=== PATIENT | female | born 1990 | race Caucasian/White ===

== ENCOUNTER → 2016-06-16 | Outpatient (CLI) | payer BC ==
--- NOTE | 2016-06-16 11:54 | REP ---
Double contrast upper GI series: History: Gastroesophageal reflux disease. 56 seconds of fluoroscopy time is utilized. A single overhead observation nurse view, 14 fluoroscopically obtained spot radiographs, and one last image hold fluoroscopic images are obtained. Findings: Credit Verifier view shows a mild dextroconvex curvature in the lumbar spine. Bowel gas pattern is normal. Double contrast study demonstrates a normal esophagus and gastroesophageal junction. Reflux was not witnessed during the exam. No stricture or hiatal hernia is seen. The stomach displays normal rugal folds and a normal mucosal pattern. No gastric mass or ulcer seen. Pylorus is smooth. Duodenal bulb was fully distensible and clear. C-loop is not widened. Remainder of the visualized small bowel is unremarkable. Impression: Normal double contrast upper GI series. Reflux was not witnessed during exam. Signed by Edil Bolanos MD 06/16/2016 12:28 P
--- NOTE | 2016-06-17 04:26 | REP ---
Clinical: Abdominal pain with history of gastroesophageal reflux disease. Technique: Real time rios scale ultrasound examination using curved array transducer. Findings: Liver and visualized pancreas are normal in contour, size, and echogenicity without focal hepatic or pancreatic lesions identified. Gallbladder demonstrates mobile stones up to 1.5 cm, but without wall thickening, pericholecystic fluid or sonographic Gomes sign. No biliary ductal dilatation is appreciated and the common bile duct measures 4.6 mm diameter. Right kidney is normal in reniform shape without hydronephrosis and measures 10.7 x 5.3 x 4.2 cm. No free fluid in the right upper quadrant. Impression: Cholelithiasis without sonographic evidence for acute cholecystitis. Signed by Derick Dickerson MD 06/17/2016 04:18 A
== END ==
LOC: M RAD 09:57
PROVIDERS: ATTEND Nurse Practitioner Adult Health
DX: K21.9 Gastro-esophageal reflux disease without esophagitis (principal)

== ENCOUNTER → 2016-07-14 | Outpatient (CLI) | payer BC ==
[~2016-07-14] MED LIST: METHACHOLINE KIT (J7674) INH ONE
--- NOTE | 2016-07-14 10:41 | PFTRPT ---
PULMONARY FUNCTION REPORT ORDERING PROVIDER: DERIC Reyez DATE OF SERVICE: 07/14/16 SPIROMETRY: Excellent technical quality. The forced vital capacity is normal. The FEV1 is in proportion. The obstructive index is, therefore, normal. FLOW VOLUME LOOP: The expiratory limb of the flow volume loop is normal. LUNG VOLUMES: The total lung capacity is normal. The residual volume is in proportion. DIFFUSION CAPACITY: The diffusion capacity is normal. HEMOGLOBIN: No hemoglobin is available for correction. AIRWAY MECHANICS: Airways resistance and conductance are normal. IMPRESSION: Normal study. MTDD
--- NOTE | 2016-07-14 11:28 | PFTRPT ---
METHACHOLINE CHALLENGE REPORT: ORDERING PROVIDER: DERIC Reyez DATE OF SERVICE:07/14/16 INTERPRETATION: The study was of excellent technical quality. Under protocol, methacholine was administered. At a dose of 25 mg (188.875 CDUs), a 22% decline in the FEV1 was noted. The PC20 of 18.44 does not meet criteria for a positive study. Of note is that, at a dose of 13.875 CDUs, a 19% decline was noted, but actually flow rates improved as we went higher in methacholine. IMPRESSION: Borderline methacholine challenge study in view of the above. Please correlate clinically. MTDD
== END ==
LOC: M CARPUL 10:07
PROVIDERS: ATTEND Nurse Practitioner Adult Health
DX: R05 Cough (principal)

== ENCOUNTER → 2016-08-29 | Outpatient (REF) | payer BC ==
[~2016-08-29] MED LIST changes: +ALEV220T26 PO; +ARNU1INH3 INH; -METHACHOLINE KIT (J7674) INH ONE; +NORE0.353 PO; +OMEP40CA2 PO; +PROA1AER INH; +TYLE500T78 PO
== END ==
LOC: M SFHCWAGY 12:53
PROVIDERS: ATTEND Nurse Practitioner Women's Health
DX: Z12.4 Encounter for screening for malignant neoplasm of cervix (principal)

== ENCOUNTER → 2016-09-15 | Day surgery (SDC) | payer BC ==
[~2016-09-15] VITALS: Ht 160 cm; Wt 105.2 kg
[~2016-09-15] MED LIST changes: +BUPIVACAINE/EPIN 0.25% 30 ML VIAL As Ordered ONE; +FAMOTIDINE/NS 20 MG/50 ML BAG (S0028) IV ONE; +KETOROLAC 60 MG/2 ML VIAL (J1885) As Ordered ONE; +LIDOCAINE 2% INJ 100 MG/5 ML SDV (FOR ANES.) As Ordered ONE; +LR 1,000 ML IV SCH; +METOCLOPRAMIDE INJ 10MG/2ML VIAL (J2765) As Ordered ONE; +METOCLOPRAMIDE INJ 10MG/2ML VIAL (J2765) IV PRN; +MIDAZOLAM INJ 2 MG/2 ML VIAL (J2250) As Ordered ONE; +NORCO, ANEXSIA 5/325MG TABLET (HYDROcodone/ACETAMINOPHEN) PO PRN; +ONDANSETRON 4MG/2ML VIAL (J2405) As Ordered ONE; +ONDANSETRON 4MG/2ML VIAL (J2405) IV PRN; +PERCOCET 5MG/325MG TAB As Ordered ONE; +PROPOFOL 200 MG/20 ML VIAL As Ordered ONE; +ROCURONIUM BROMIDE 50 MG/5 ML VIAL As Ordered ONE; +SCOPOLAMINE 1.5 MG TRANSDERMAL TOP ONE; +SUCCINYLCHOLINE 100 MG/5 ML SYRINGE (J0330) As Ordered ONE; +SUGAMMADEX SODIUM 500 MG/5 ML VIAL (BRIDION) As Ordered ONE; +dexameTHASONE 4 MG/ML 1ML VIAL (J1100) As Ordered ONE; +fentaNYL 100 MCG/2 ML INJECTION (J3010) As Ordered ONE; +fentaNYL 250 MCG/5 ML INJECTION (J3010) As Ordered ONE
[2016-09-15 07:44] LABS: CONTROL LINE UCG INT CTR LINE PRESENT
[2016-09-15] MEDS: fentaNYL 100 MCG/2 ML INJECTION (J3010) IV PRN ×4 (10:00→10:27)
[2016-09-15] MEDS: PERCOCET 5MG/325MG TAB PO PRN ×2 (10:05→12:35)
[2016-09-15 14:00] VITALS: BP 117/64
--- NOTE | 2016-09-15 21:59 | RO ---
DATE OF PROCEDURE: 09/15/2016 PREOPERATIVE DIAGNOSIS: Symptomatic cholelithiasis. POSTOPERATIVE DIAGNOSIS: Symptomatic cholelithiasis. PROCEDURE: Laparoscopic cholecystectomy. SURGEON: Dr. Fred Fish FINISHING RANGE SUPERVISOR: Dr. Richardson ANESTHESIA: General. ESTIMATED BLOOD LOSS: 5 mL. COMPLICATIONS: None. INDICATIONS FOR PROCEDURE: Patient is 25-year-old female who presents with persistent right upper abdominal pain, found to have stones on ultrasound. Recommendation was to proceed with laparoscopic, possible open cholecystectomy. Risks and benefit of procedure, not limited to but including bleeding, infection, hernia formation, damage to surrounding structures and need for further surgery were discussed in detail with the patient. Informed consent was obtained and procedure was planned. DESCRIPTION OF PROCEDURE: The patient was brought back to operating room seven, after sufficient sedation, the abdomen was sterilely prepped and draped. Next, time-out was done to confirm proper patient, proper procedure. Following that, a stab incision was made in left upper quadrant. Veress needle was inserted and the abdomen was insufflated to 15 mmHg. Next, a 5 mm supraumbilical incision was made, incision was carried down to the level of the fascia. A 5 mm Optiview port was then used to gain access to the abdomen. Once the abdomen was entered, Veress needle site was examined. There were no signs of injury. Veress needle was then removed. A 10 mm port was placed subxiphoid, two 5 mm ports in the right upper quadrant. Fundus of the gallbladder was grasped and elevated up towards the right shoulder. Cystic duct and cystic artery were both clearly identified. They were both doubly clipped and cut. Gallbladder was then removed from the gallbladder fossa using electrocautery. Once the gallbladder was removed, it was taken out through the 10 mm port site in a 10 mm Endo Catch bag. The right upper quadrant was examined and confirmed hemostasis. Abdomen was then desufflated. Skin incisions were closed with #4-0 Vicryl subcuticular sutures. The abdomen was clean and dry. Steri-Strips, 4 x 4 and tape were applied thus ending procedure.
== END | disposition home or self-care (01) ==
LOC: M SDC 06:52
PROVIDERS: ATTEND Surgery
DX: K80.10 Calculus of gallbladder with chronic cholecystitis without obstruction (principal); I10 Essential (primary) hypertension; K21.9 Gastro-esophageal reflux disease without esophagitis; M41.9 Scoliosis, unspecified; G43.909 Migraine, unspecified, not intractable, without status migrainosus; J45.909 Unspecified asthma, uncomplicated; Z91.09 Other allergy status, other than to drugs and biological substances; Z79.899 Other long term (current) drug therapy
CPT/HCPCS: 47562; 84703; 88304; J0330; J0690; J1100; J1885; J2250; J2405; J2765; J3010

== ENCOUNTER → 2016-09-19 | Outpatient (CLI) | payer BC ==
[~2016-09-19] MED LIST changes: -BUPIVACAINE/EPIN 0.25% 30 ML VIAL As Ordered ONE; -FAMOTIDINE/NS 20 MG/50 ML BAG (S0028) IV ONE; -KETOROLAC 60 MG/2 ML VIAL (J1885) As Ordered ONE; -LIDOCAINE 2% INJ 100 MG/5 ML SDV (FOR ANES.) As Ordered ONE; -LR 1,000 ML IV SCH; -METOCLOPRAMIDE INJ 10MG/2ML VIAL (J2765) As Ordered ONE; -METOCLOPRAMIDE INJ 10MG/2ML VIAL (J2765) IV PRN; -MIDAZOLAM INJ 2 MG/2 ML VIAL (J2250) As Ordered ONE; -NORCO, ANEXSIA 5/325MG TABLET (HYDROcodone/ACETAMINOPHEN) PO PRN; -ONDANSETRON 4MG/2ML VIAL (J2405) As Ordered ONE; -ONDANSETRON 4MG/2ML VIAL (J2405) IV PRN; -PERCOCET 5MG/325MG TAB As Ordered ONE; -PROPOFOL 200 MG/20 ML VIAL As Ordered ONE; -ROCURONIUM BROMIDE 50 MG/5 ML VIAL As Ordered ONE; -SCOPOLAMINE 1.5 MG TRANSDERMAL TOP ONE; -SUCCINYLCHOLINE 100 MG/5 ML SYRINGE (J0330) As Ordered ONE; -SUGAMMADEX SODIUM 500 MG/5 ML VIAL (BRIDION) As Ordered ONE; -dexameTHASONE 4 MG/ML 1ML VIAL (J1100) As Ordered ONE; -fentaNYL 100 MCG/2 ML INJECTION (J3010) As Ordered ONE; -fentaNYL 250 MCG/5 ML INJECTION (J3010) As Ordered ONE
[2016-09-19 12:23] LABS: BASO % 0.1 % (0.0-1.0); EOS % 0.3 % (0.0-3.0); LARGE UNSTAINED CELL # 0.1 K/mm3 (0.0-0.4); LARGE UNSTAINED CELL % 0.7 % (0.0-4.0); LYMPH # 2.6 K/mm3 (1.5-6.5); LYMPH % 14.7 % (24.0-44.0); MEAN CORPUSCULAR HEMOGLOBIN 27.1 pg (27.0-33.0); MEAN CORPUSCULAR HGB CONC 33.7 g/dl (32.0-36.5); MEAN CORPUSCULAR VOLUME 80.5 fl (80.0-96.0); MONO # 0.6 K/mm3 (0.0-0.8); MONO % 3.5 % (0.0-5.0); NEUTROPHILS # 13.9 K/mm3 (1.8-7.7); NEUTROPHILS % 80.8 % (36.0-66.0); PLATELET COUNT, AUTOMATED 360 k/mm3 (150-450); WHITE BLOOD COUNT 17.1 K/mm3 (4.0-10.0)
[2016-09-19 12:53] LABS: ALBUMIN 3.4 GM/DL (3.2-5.2); ALBUMIN/GLOBULIN RATIO 0.85 (1.00-1.93); ALKALINE PHOSPHATASE 114 U/L (45-117); ALT/SGPT 40 U/L (12-78); ANION GAP 3 MEQ/L (8-16); AST/SGOT 9 U/L (15-37); BILIRUBIN,TOTAL 0.2 MG/DL (0.2-1.0); BLOOD UREA NITROGEN 9 MG/DL (7-18); CARBON DIOXIDE LEVEL 30 MEQ/L (21-32); CHLORIDE LEVEL 102 MEQ/L (98-107); CREATININE FOR GFR 0.68 MG/DL (0.55-1.02); GLOMERULAR FILTRATION RATE > 60.0 (>60); GLUCOSE, FASTING 115 MG/DL (70-105); POTASSIUM SERUM 4.7 MEQ/L (3.5-5.1); SODIUM LEVEL 135 MEQ/L (136-145); TOTAL PROTEIN 7.4 GM/DL (6.4-8.2)
[2016-09-19 13:28] LABS: ERYTHROCYTE SEDIMENTATION RATE 27 mm/hr (0-20)
== END ==
LOC: M LAB 11:48
PROVIDERS: ATTEND Psychiatry & Neurology Neurology
DX: R51 Headache (principal)

== ENCOUNTER → 2016-12-30 | Outpatient (REF) | payer BC ==
[~2016-12-30] MED LIST changes: +DESO1TAB5 PO; +MUCI600T37 PO; +PRED20TA PO; -PROA1AER INH; +PROAAER10 INH; +TESS100C PO; +ZONI50CA3 PO
== END ==
LOC: M SFHCPLAZ 12:48
PROVIDERS: ATTEND Nurse Practitioner Adult Health
DX: R35.0 Frequency of micturition (principal)

== ENCOUNTER 2017-01-05 23:56 | Emergency (ER) | payer BC ==
[~2017-01-05] VITALS: Ht 160 cm; Wt 105.0 kg
[~2017-01-05 23:56] MED LIST changes: -DESO1TAB5 PO; -MUCI600T37 PO; -PRED20TA PO; -TESS100C PO; -ZONI50CA3 PO
[2017-01-06] MEDS ORDERED: DESO1TAB5 PO (00:12)
[2017-01-06] MEDS ORDERED: ZONI50CA3 PO (00:12)
[2017-01-06] MEDS ORDERED: MUCI600T37 PO (03:23)
[2017-01-06] MEDS ORDERED: TESS100C PO (03:23)
[2017-01-06] MEDS ORDERED: PRED20TA PO (03:23)
[2017-01-06] MEDS ORDERED: predniSONE 20 MG TAB PO ONE (03:30)
[2017-01-06 03:43] VITALS: BP 135/86
[2017-01-06] MEDS ORDERED: guaiFENesin ER 600 MG TAB PO ONE (03:45)
[2017-01-06] MEDS ORDERED: guaiFENesin ER 600 MG TAB PO SCH (09:00)
== END 2017-01-06 03:45 | disposition home or self-care (01) ==
LOC: M ED 23:56
DX: J20.9 Acute bronchitis, unspecified (principal)

== ENCOUNTER → 2017-04-28 | Outpatient (CLI) | payer BC | LOC: M RAD 13:23 | DX: R35.0 Frequency of micturition (principal) ==

== ENCOUNTER → 2017-09-02 | Outpatient (REF) | payer BC | LOC: M SFHCWAGY 11:49 | DX: Z12.4 Encounter for screening for malignant neoplasm of cervix (principal) | CPT/HCPCS: G0123 ==

== ENCOUNTER → 2017-11-12 | Outpatient (CLI) | payer BC ==
[2017-11-12 16:10] LABS: TOTAL 25(OH) VITAMIN D 32.5 NG/ML (30.0-100.0)
== END ==
LOC: M LAB 14:59
DX: E55.9 Vitamin D deficiency, unspecified (principal)
CPT/HCPCS: 82306

== ENCOUNTER → 2018-01-26 | Outpatient (CLI) | payer BC ==
[2018-01-27 00:09] LABS: ALBUMIN 3.3 GM/DL (3.2-5.2); ALBUMIN/GLOBULIN RATIO 0.89 (1.00-1.93); ALKALINE PHOSPHATASE 90 U/L (45-117); ALT/SGPT 19 U/L (12-78); ANION GAP 9 MEQ/L (8-16); AST/SGOT 13 U/L (7-37); BILIRUBIN,TOTAL 0.2 MG/DL (0.2-1.0); BLOOD UREA NITROGEN 12 MG/DL (7-18); CARBON DIOXIDE LEVEL 24 MEQ/L (21-32); CHLORIDE LEVEL 108 MEQ/L (98-107); GLOMERULAR FILTRATION RATE > 60.0 (>60); GLUCOSE, FASTING 90 MG/DL (70-100); POTASSIUM SERUM 4.6 MEQ/L (3.5-5.1); SODIUM LEVEL 141 MEQ/L (136-145)
[2018-01-27 00:10] LABS: TOTAL 25(OH) VITAMIN D 45.3 NG/ML (30.0-100.0)
== END ==
LOC: M LAB 12:50
DX: Z00.00 Encounter for general adult medical examination without abnormal findings (principal); E55.9 Vitamin D deficiency, unspecified
CPT/HCPCS: 84443

== ENCOUNTER → 2018-02-19 | Outpatient (CLI) | payer BC | LOC: M SLEEP HO 12:19 | DX: G47.33 Obstructive sleep apnea (adult) (pediatric) (principal) | CPT/HCPCS: G0399 ==

== ENCOUNTER → 2018-09-24 | Outpatient (REF) | payer BC ==
[~2018-09-24] MED LIST changes: +DESO1TAB5 PO; +MUCI600T37 PO; +PRED20TA PO; +TESS100C PO; +ZONI50CA3 PO
[2018-09-24 20:30] LABS: CHLAMYDIA DNA AMPLIFICATION NEGATIVE (NEGATIVE); GC DNA AMPLIFICATION NEGATIVE (NEGATIVE)
== END ==
LOC: M LAB REF 17:40
PROVIDERS: ATTEND Advanced Practice Midwife
DX: Z11.3 Encounter for screening for infections with a predominantly sexual mode of transmission (principal)

== ENCOUNTER → 2018-10-12 | Outpatient (CLI) | payer BC ==
--- NOTE | 2018-10-12 22:49 | REP ---
Clinical: Polycystic ovary syndrome . Technique: Transabdominal pelvic ultrasound followed by transvaginal examination for better evaluation of the endometrium and adnexa with color Doppler evaluation of the ovaries. Findings: Bladder is unremarkable and measures 9.2 x 11.3 x 7.0 cm . Normal anteverted uterus measures 6.3 x 2.9 x 3.7 cm . The endometrial complex measures 2.0 mm thickness. No discrete uterine or endometrial abnormalities are appreciated. Bilateral ovaries are normal in vascularity without evidence for torsion. Right ovary measures 3.0 x 2.1 x 2.5 cm ; R I = 0.52 . Left ovary measures 3.0 x 1.5 x 2.3 cm ; R I = 0.50 . Follicles are identified and ranged peripherally around the ovaries raising the possibility of polycystic ovary syndrome. No pelvic free fluid or adnexal mass lesion. Impression: 1. 2.1 cm hypoechoic heterogeneous area within the lower uterine segment/cervix is nonspecific. Possibilities include fibroid. Consider reevaluation at 6-8 weeks. 2. Cannot exclude polycystic ovary syndrome Electronically Signed by Derick Dickerson MD 10/12/2018 10:42 P
== END ==
LOC: M RAD 12:31
PROVIDERS: ATTEND Advanced Practice Midwife
DX: E28.2 Polycystic ovarian syndrome (principal)

== ENCOUNTER → 2018-10-22 | Outpatient (CLI) | payer BC ==
[2018-10-22 15:03] LABS: HEMOGLOBIN 13.7 g/dl (12.0-15.5); MEAN CORPUSCULAR HEMOGLOBIN 27.5 pg (27.0-33.0); MEAN CORPUSCULAR HGB CONC 33.4 g/dl (32.0-36.5); MEAN CORPUSCULAR VOLUME 82.2 fl (80.0-96.0); PLATELET COUNT, AUTOMATED 304 10^3/uL (150-450); RED BLOOD COUNT 4.99 10^6/uL (4.00-5.40); WHITE BLOOD COUNT 9.2 10^3/uL (4.0-10.0)
[2018-10-22 15:20] LABS: HEMOGLOBIN A1c 5.9 %
[2018-10-22 15:33] LABS: ALBUMIN 3.3 GM/DL (3.2-5.2); ALT/SGPT 26 U/L (12-78); BILIRUBIN,TOTAL 0.2 MG/DL (0.2-1.0); BLOOD UREA NITROGEN 8 MG/DL (7-18); CALCIUM LEVEL 8.9 MG/DL (8.5-10.1); CARBON DIOXIDE LEVEL 22 MEQ/L (21-32); CHLORIDE LEVEL 110 MEQ/L (98-107); CREATININE FOR GFR 0.83 MG/DL (0.55-1.30); GLOMERULAR FILTRATION RATE > 60.0 (>60); GLUCOSE, FASTING 96 MG/DL (70-100); SODIUM LEVEL 141 MEQ/L (136-145); TOTAL PROTEIN 7.5 GM/DL (6.4-8.2)
[2018-10-22 15:45] LABS: TOTAL 25(OH) VITAMIN D 39.9 NG/ML (30.0-100.0)
== END ==
LOC: M LAB 14:34
PROVIDERS: ATTEND Advanced Practice Midwife
DX: E28.2 Polycystic ovarian syndrome (principal)

== ENCOUNTER 2019-02-20 18:24 | Emergency (ER) | payer BC, OTHER ==
[~2019-02-20] VITALS: Ht 162.6 cm; Wt 110.5 kg
[~2019-02-20 18:24] MED LIST changes: -OMEP40CA2 PO; +OMEP40CA97 PO
[2019-02-20] MEDS ORDERED: METF-791 (18:34)
[2019-02-20] MEDS ORDERED: SERT-138 (18:34)
[2019-02-20] MEDS ORDERED: TRAZ-163 (18:34)
[2019-02-20] MEDS ORDERED: MYRB50TA PO (18:34)
[2019-02-20] MEDS ORDERED: LEVOTAB10 PO (18:34)
[2019-02-20] MEDS ORDERED: NORG1TAB4 (18:34)
[2019-02-20] MEDS ORDERED: NORCO, ANEXSIA 5/325MG TABLET (HYDROcodone/ACETAMINOPHEN) PO ONE (19:30)
[2019-02-20 20:26] VITALS: BP 120/82
--- NOTE | 2019-02-21 08:40 | REP ---
Left hand: Four views. History: Injury in a fall. Findings: Four views of the left hand demonstrate overall normal mineralization. Bones, joints, and soft tissues are unremarkable. Impression: Negative left hand radiographs. No fracture seen. Electronically Signed by Edil Bolanos MD 02/21/2019 08:31 A
--- NOTE | 2019-02-21 08:40 | REP ---
Left wrist series: Four views. History: Injury in a fall. Findings: Four views of the left wrist demonstrate normal bones, joints, and soft tissues. No fracture or subluxation is seen. Impression: Negative radiographs of the left wrist. Electronically Signed by Edil Bolanos MD 02/21/2019 08:31 A
== END 2019-02-20 20:33 | disposition home or self-care (01) ==
LOC: M ED 18:24
DX: S63.502A Unspecified sprain of left wrist, initial encounter (principal); W01.0XXA Fall on same level from slipping, tripping and stumbling without subsequent striking against object, initial encounter; Y92.89 Other specified places as the place of occurrence of the external cause; Y99.0 Civilian activity done for income or pay; J45.909 Unspecified asthma, uncomplicated; G47.33 Obstructive sleep apnea (adult) (pediatric); E28.2 Polycystic ovarian syndrome; G43.909 Migraine, unspecified, not intractable, without status migrainosus; Z79.899 Other long term (current) drug therapy; Z88.8 Allergy status to other drugs, medicaments and biological substances

== ENCOUNTER → 2019-03-10 | Outpatient (CLI) | payer BC ==
[~2019-03-10] MED LIST changes: +LEVOTAB10 PO; +METF-791; +MYRB50TA PO; +NORG1TAB4; +SERT-138; +TRAZ-163
[2019-03-10 10:24] LABS: HEMATOCRIT 38.2 % (36.0-47.0); HEMOGLOBIN 12.6 g/dl (12.0-15.5); MEAN CORPUSCULAR HEMOGLOBIN 27.3 pg (27.0-33.0); MEAN CORPUSCULAR VOLUME 82.9 fl (80.0-96.0); PLATELET COUNT, AUTOMATED 299 10^3/uL (150-450); RED BLOOD COUNT 4.61 10^6/uL (4.00-5.40); WHITE BLOOD COUNT 12.8 10^3/uL (4.0-10.0)
[2019-03-10 10:59] LABS: ALT/SGPT 15 U/L (12-78); BILIRUBIN,TOTAL 0.3 MG/DL (0.2-1.0); BLOOD UREA NITROGEN 13 MG/DL (7-18); CALCIUM LEVEL 8.9 MG/DL (8.5-10.1); CARBON DIOXIDE LEVEL 23 MEQ/L (21-32); CHLORIDE LEVEL 110 MEQ/L (98-107); CREATININE FOR GFR 0.88 MG/DL (0.55-1.30); GLOMERULAR FILTRATION RATE > 60.0 (>60); GLUCOSE, FASTING 90 MG/DL (70-100); HEMOGLOBIN A1c 5.4 %; SODIUM LEVEL 141 MEQ/L (136-145); TOTAL PROTEIN 6.9 GM/DL (6.4-8.2)
== END ==
LOC: M LAB 09:09
PROVIDERS: ATTEND Nurse Practitioner Adult Health
DX: E74.39 Other disorders of intestinal carbohydrate absorption (principal)

== ENCOUNTER → 2019-08-03 | Outpatient (REF) | payer BC ==
[~2019-08-03] MED LIST changes: +AIMO70IN SC; +DOXY-350 PO; +FLUC150T PO; +HYDR-3363 PO; +LARI1TAB3 PO; -METF-791; +METF-838 PO; -NORG1TAB4; +NORG1TAB4 PO; +SERT25TA85 PO; +SING5CHW23 PO; -TRAZ-163; +TRAZ-257 PO; +ZONI50CA11 PO; -ZONI50CA3 PO
== END ==
LOC: M LAB REF 10:33
PROVIDERS: ATTEND Dermatology
DX: D23.5 Other benign neoplasm of skin of trunk (principal)

== ENCOUNTER → 2019-08-09 | Outpatient (CLI) | payer BC ==
[~2019-08-09] MED LIST changes: +METF-791 PO; -METF-838 PO
--- NOTE | 2019-08-15 09:59 | SLEEPCENT ---
DATE OF PROCEDURE: 08/09/2019 INTERPRETATION: Nocturnal polysomnography was performed for the titration of pressure therapy in this patient with obstructive sleep apnea syndrome. Respiratory event index of 5.9 incompletely palliated with auto titrating full pressure therapy. For testing the patient was fit with a ResMed soft touch full face mask of small size, 4 cm of water pressure were applied to the circuit and the lights were extinguished. 8 hours and 18 minutes of data were reviewed. There were 416 minutes of sleep identified. Sleep latency was normal at 22 minutes. REM sleep was delayed at 146. Sleep architecture was good with two REM cycles noted. Overall sleep efficiency was 84.4%. The patient's electrocardiogram showed sinus rhythm with an average heart rate of 82 beats per minute. EEG showed normal waveforms for awake and sleep. Respiratory events were best palliated with CPAP at a pressure of +8 and remaining measures of sleep physiology were normal. IMPRESSION: Obstructive sleep apnea syndrome (G47.33) RECOMMENDATIONS: Nightly use of pressure therapy 8 cm of water.
== END ==
LOC: M SLEEP 20:00
PROVIDERS: ATTEND Nurse Practitioner Adult Health
DX: G47.33 Obstructive sleep apnea (adult) (pediatric) (principal)

== ENCOUNTER → 2019-08-12 | Outpatient (CLI) | payer BC ==
[~2019-08-12] MED LIST changes: -METF-791 PO; +METF-838 PO; +OXYC1TAB23
== END ==
LOC: M LABSMTC 11:27
PROVIDERS: ATTEND Anesthesiology
DX: Z01.812 Encounter for preprocedural laboratory examination (principal); Z11.59 Encounter for screening for other viral diseases

== ENCOUNTER → 2019-08-12 | Outpatient (REF) | payer BC ==
[2019-08-12 14:34] LABS: FOLATE 15.5 NG/ML (>5.4); THYROID STIMULATING HORMONE 3.49 uIU/ML (0.358-3.740)
[2019-08-12 16:46] LABS: HEMOGLOBIN A1c 5.5 %
== END ==
LOC: M PLALAB 11:08
PROVIDERS: ATTEND Advanced Practice Midwife
DX: E28.2 Polycystic ovarian syndrome (principal); L65.9 Nonscarring hair loss, unspecified

== ENCOUNTER 2019-08-15 08:57 | Day surgery (SDC) | payer BC, OTHER ==
[~2019-08-15] VITALS: Ht 162.6 cm; Wt 126.1 kg
[~2019-08-15 08:57] MED LIST changes: -DOXY-350 PO; -FLUC150T PO; +LR 1,000 ML IV ONE; -OXYC1TAB23
[2019-08-15] MEDS ORDERED: DOXY-350 PO (09:44)
[2019-08-15] MEDS ORDERED: FLUC150T PO (09:44)
[2019-08-15] MEDS ORDERED: BUPIVACAINE HCL 0.25% 30ML VIAL As Ordered ONE (11:47)
[2019-08-15] MEDS ORDERED: MIDAZOLAM INJ 2MG/2ML VIAL (J2250 PER 1MG) As Ordered ONE (11:58)
[2019-08-15] MEDS ORDERED: KETOROLAC 60 MG/2 ML VIAL As Ordered ONE (11:58)
[2019-08-15] MEDS ORDERED: propofoL 200 MG/20 ML VIAL As Ordered ONE ×2 (11:58→12:26)
[2019-08-15] MEDS ORDERED: LIDOCAINE 2% 100MG/5ML SDV (FOR ANES.) As Ordered ONE (11:58)
[2019-08-15] MEDS ORDERED: METOCLOPRAMIDE INJ 10MG/2ML VIAL (J2765 PER 1) As Ordered ONE (11:58)
[2019-08-15] MEDS ORDERED: dexameTHASONE 4 MG/ML 1ML VIAL (J1100 PER 1MG) As Ordered ONE (11:58)
[2019-08-15] MEDS ORDERED: fentaNYL 100 MCG/2 ML INJECTION (J3010) As Ordered ONE ×2 (11:58→12:56)
[2019-08-15] MEDS ORDERED: oxyCODONE 5MG TAB As Ordered ONE (12:56)
[2019-08-15] MEDS: fentaNYL 100 MCG/2 ML INJECTION (J3010) IV PRN ×3 (12:58→13:10)
[2019-08-15] MEDS ORDERED: LR 1,000 ML IV SCH (13:00)
[2019-08-15] MEDS ORDERED: oxyCODONE 5MG TAB PO PRN (13:00)
[2019-08-15] MEDS ORDERED: ONDANSETRON 4MG/2ML VIAL IV PRN (13:00)
[2019-08-15] MEDS: oxyCODONE 5MG TAB PO PRN ×2 (13:09→14:40)
[2019-08-15 14:55] VITALS: BP 128/60
--- NOTE | 2019-08-16 15:39 | RO ---
DATE OF PROCEDURE: 08/15/2019 PREPROCEDURE DIAGNOSIS: Left carpal tunnel and de Quervain syndrome. POSTPROCEDURE DIAGNOSIS: Left carpal tunnel and de Quervain syndrome. PROCEDURE: Left endoscopic carpal tunnel release and left de Quervain release. SURGEON: Dr. Omer Nielsen. LOAN ANALYST: ANESTHESIA: General. TOURNIQUET TIME: 18 minutes. ESTIMATED BLOOD LOSS: Minimal. COMPLICATIONS: None. INDICATION: 28-year-old female who failed nonoperative modes of treatment. Discussed the risks and benefits of surgical release including but not limited to infection, damage to nerves and vessels, incomplete relief and patient wished to proceed. DESCRIPTION OF PROCEDURE: Patient was brought back to the operating room (OR) in the supine position. Underwent general anesthesia at which point the left arm was prepped and draped in the usual fashion. We had time-out confirming site and side and surgery. We then exsanguinated the limb and elevated the tourniquet to 250 mmHg. I made a transverse incision over the palmaris longus, retracted it radially, at which point, we peirced antebrachial fascia, sharply incised this using a two-point two-prong skin hook to elevate. We then used the dilator and synovial stripper and inserted the endoscopic camera, and once we had the median nerve safely out of view, we transected from distal to proximal. Once we had adequate release, we irrigated the wound thoroughly. Closed with #3-0 Vicryl, #3-0 Prolene and a soft sterile gauze and Tegaderm. We then turned our attention to the radial styloid and made a longitudinal incision overlying this. Sharply dissected through subcutaneous tissue careful to identifying and preserved the superficial sensory branch of the radial nerve. We then found the 1st extensor compartment and released it from the most dorsal aspect could decrease risk of subluxation. Once we had adequately released the sheath and now sub-sheaths. We irrigated the wound thoroughly and closed with #3-0 Vicryl, #3-0 Monocryl, Mastisol, Steris, gauze and Tegaderm placed a sterile dressing of Kerlix and baldev. The tourniquet was let down. The patient was awakened, extubated and taken to the postanesthesia care unit (PACU) in stable condition. POSTOPERATIVE PLAN: The patient will work on finger range of motion and pain control. We will see her in the office 2 weeks postoperatively. BURAK
== END 2019-08-15 15:10 | disposition home or self-care (01) ==
LOC: M SDC 08:57
PROVIDERS: ATTEND Orthopaedic Surgery Hand Surgery
DX: G56.02 Carpal tunnel syndrome, left upper limb (principal); M65.4 Radial styloid tenosynovitis [de Quervain]; K21.9 Gastro-esophageal reflux disease without esophagitis; G43.909 Migraine, unspecified, not intractable, without status migrainosus; J45.909 Unspecified asthma, uncomplicated; Z79.899 Other long term (current) drug therapy; G47.30 Sleep apnea, unspecified; F41.9 Anxiety disorder, unspecified; F32.9 Major depressive disorder, single episode, unspecified
CPT/HCPCS: 25000; 29848; 81025; J1100; J1885; J2250; J2765; J3010

== ENCOUNTER 2019-08-20 15:14 | Emergency (ER) | payer OTHER, BC ==
[~2019-08-20] VITALS: Ht 162.6 cm; Wt 127.6 kg
[~2019-08-20 15:14] MED LIST changes: +DOXY-350 PO; +FLUC150T PO; -LR 1,000 ML IV ONE
[2019-08-20] MEDS ORDERED: OXYC1TAB23 (15:23)
[2019-08-20 15:54] LABS: BASO % 0.3 % (0.0-1.0); EOS # 0.1 10^3/uL (0.0-0.5); HEMOGLOBIN 13.1 g/dl (12.0-15.5); LYMPH # 3.1 10^3/uL (1.5-5.0); LYMPH % 28.2 % (24.0-44.0); MEAN CORPUSCULAR HEMOGLOBIN 27.5 pg (27.0-33.0); MEAN CORPUSCULAR HGB CONC 33.6 g/dl (32.0-36.5); MEAN CORPUSCULAR VOLUME 81.8 fl (80.0-96.0); MONO # 0.6 10^3/uL (0.0-0.8); MONO % 5.3 % (0.0-5.0); NEUTROPHILS % 64.9 % (36.0-66.0); PLATELET COUNT, AUTOMATED 302 10^3/uL (150-450); RED BLOOD COUNT 4.77 10^6/uL (4.00-5.40); WHITE BLOOD COUNT 10.8 10^3/uL (4.0-10.0)
[2019-08-20 16:16] LABS: ALBUMIN 2.8 GM/DL (3.2-5.2); ALT/SGPT 19 U/L (12-78); BILIRUBIN,TOTAL 0.4 MG/DL (0.2-1.0); BLOOD UREA NITROGEN 12 MG/DL (7-18); CALCIUM LEVEL 8.5 MG/DL (8.5-10.1); CARBON DIOXIDE LEVEL 25 MEQ/L (21-32); CHLORIDE LEVEL 107 MEQ/L (98-107); CREATININE FOR GFR 0.69 MG/DL (0.55-1.30); GLOMERULAR FILTRATION RATE > 60.0 (>60); GLUCOSE, FASTING 94 MG/DL (70-100); POTASSIUM SERUM 4.1 MEQ/L (3.5-5.1); SODIUM LEVEL 139 MEQ/L (136-145); TOTAL PROTEIN 6.5 GM/DL (6.4-8.2)
[2019-08-20 16:46] VITALS: BP 127/76
== END 2019-08-20 16:48 | disposition home or self-care (01) ==
LOC: M ED 15:14
DX: M25.532 Pain in left wrist (principal); Z98.890 Other specified postprocedural states; J45.909 Unspecified asthma, uncomplicated; Z99.89 Dependence on other enabling machines and devices; Z79.899 Other long term (current) drug therapy; Z88.8 Allergy status to other drugs, medicaments and biological substances; Z91.018 Allergy to other foods; Z91.048 Other nonmedicinal substance allergy status

== ENCOUNTER 2019-09-23 16:56 | Emergency (ER) | payer BC, OTHER ==
[~2019-09-23] VITALS: Ht 162.6 cm; Wt 116.8 kg
[~2019-09-23 16:56] MED LIST changes: +OXYC1TAB23
[2019-09-23] MEDS ORDERED: METOCLOPRAMIDE 10 MG TAB PO ONE (18:00)
[2019-09-23] MEDS ORDERED: IBUPROFEN 800 MG TAB PO ONE (18:00)
[2019-09-23] MEDS ORDERED: BOOSTRIX/ADACEL VACCINE (DIPHTH/PERTUSS/ACELL/TETANUS) 0.5ML SYR IM ONE (18:00)
--- NOTE | 2019-09-23 18:47 | REPVR ---
PROCEDURE INFORMATION: Exam: CT Head Without Contrast Exam date and time: 09/23/2019 6:14 PM Age: 28 years old Clinical indication: Injury or trauma; Fall; Initial encounter; Blunt trauma (contusions or hematomas); Additional info: Fell on face TECHNIQUE: Imaging protocol: Computed tomography of the head without contrast. Radiation optimization: All CT scans at this facility use at least one of these dose optimization techniques: automated exposure control; mA and/or kV adjustment per patient size (includes targeted exams where dose is matched to clinical indication); or iterative reconstruction. COMPARISON: No relevant prior studies available. FINDINGS: Brain: There is no evidence of infarct, child-white matter differentiation is preserved. There is no hemorrhage or extra-axial collection. There is no mass. Ventricles: There is no hydrocephalus. Bones/joints: No calvarial fracture. Sinuses: See maxillofacial CT Mastoid air cells: Visualized mastoid air cells are well aerated. Soft tissues: Unremarkable. IMPRESSION: No intracranial injury or lesion. Electronically signed by: Rod Franklin On 09/23/2019 18:46:49 PM
--- NOTE | 2019-09-23 18:49 | REPVR ---
PROCEDURE INFORMATION: Exam: CT Maxillofacial Without Contrast Exam date and time: 09/23/2019 6:14 PM Age: 28 years old Clinical indication: Injury or trauma; Fall; Initial encounter; Blunt trauma (contusions or hematomas); Nose; Additional info: Fell on face TECHNIQUE: Imaging protocol: Computed tomography images of the face without contrast. Radiation optimization: All CT scans at this facility use at least one of these dose optimization techniques: automated exposure control; mA and/or kV adjustment per patient size (includes targeted exams where dose is matched to clinical indication); or iterative reconstruction. COMPARISON: No relevant prior studies available. FINDINGS: Orbits: Orbits are normal. Globes are unremarkable. Bones/joints: There is no evidence of a nasal bone fracture. There is no fracture of the orbits or zygomatic arches. No fracture of the sinuses. No fracture of the maxilla. No fracture or dislocation of the mandible. Sinuses: Normal. No air-fluid levels. Soft tissues: Unremarkable. IMPRESSION: No evidence of facial bone fracture. Electronically signed by: Rod Franklin On 09/23/2019 18:48:52 PM
[2019-09-23 19:10] VITALS: BP 112/68
== END 2019-09-23 19:22 | disposition home or self-care (01) ==
LOC: M ED 16:56
DX: S09.90XA Unspecified injury of head, initial encounter (principal); T14.8XXA Other injury of unspecified body region, initial encounter; W18.39XA Other fall on same level, initial encounter; Y92.018 Other place in single-family (private) house as the place of occurrence of the external cause; E11.9 Type 2 diabetes mellitus without complications; J45.909 Unspecified asthma, uncomplicated; K21.9 Gastro-esophageal reflux disease without esophagitis; F33.9 Major depressive disorder, recurrent, unspecified; F41.9 Anxiety disorder, unspecified; G47.33 Obstructive sleep apnea (adult) (pediatric); M19.90 Unspecified osteoarthritis, unspecified site; Z79.899 Other long term (current) drug therapy; Z79.84 Long term (current) use of oral hypoglycemic drugs; Z88.8 Allergy status to other drugs, medicaments and biological substances

== ENCOUNTER → 2020-02-07 | Outpatient (REF) | payer BC | LOC: M LAB REF 19:20 | PROVIDERS: ATTEND Physician Assistant | DX: B35.3 Tinea pedis (principal) ==

== ENCOUNTER → 2020-02-07 | Outpatient (CLI) | payer BC ==
--- NOTE | 2020-02-07 17:23 | REP ---
INDICATION: R KNEE PAIN, UNSPECIFIED CHRONICITY HAVING LABS FIRST. COMPARISON: None. TECHNIQUE: Five views FINDINGS: Medial, lateral and patellofemoral joint compartments show no narrowing. No patellar subluxation or dislocation I see no suprapatellar effusion. There is no fracture, loose body or osteochondral defect. IMPRESSION: 1. Negative left knee for fracture, avulsion, loose body, joint effusion or other acute bony abnormality. <Electronically signed by Serafin Shields > 02/07/20 [id number]
== END ==
LOC: M RAD 14:18
PROVIDERS: ATTEND Nurse Practitioner Adult Health
DX: M25.561 Pain in right knee (principal)

== ENCOUNTER → 2020-02-07 | Outpatient (CLI) | payer BC ==
[2020-02-07 15:38] LABS: BASO % 0.2 % (0.0-1.0); EOS # 0.1 10^3/uL (0.0-0.5); EOS % 1.1 % (0.0-3.0); HEMATOCRIT 39.2 % (36.0-47.0); HEMOGLOBIN 12.7 g/dl (12.0-15.5); LYMPH # 3.2 10^3/uL (1.5-5.0); MEAN CORPUSCULAR HEMOGLOBIN 26.3 pg (27.0-33.0); MEAN CORPUSCULAR HGB CONC 32.4 g/dl (32.0-36.5); MEAN CORPUSCULAR VOLUME 81.3 fl (80.0-96.0); MONO # 0.4 10^3/uL (0.0-0.8); MONO % 4.2 % (0.0-5.0); NEUTROPHILS # 6.2 10^3/uL (1.5-8.5); NEUTROPHILS % 62.1 % (36.0-66.0); PLATELET COUNT, AUTOMATED 326 10^3/uL (150-450); RED BLOOD COUNT 4.82 10^6/uL (4.00-5.40)
[2020-02-07 16:00] LABS: C REACTIVE PROTEIN QUANTITATIV 2.82 MG/DL (0.00-0.30)
[2020-02-07 16:02] LABS: ERYTHROCYTE SEDIMENTATION RATE 33 mm/hr (0-20)
== END ==
LOC: M LAB 14:16
PROVIDERS: ATTEND Ophthalmology
DX: H47.019 Ischemic optic neuropathy, unspecified eye (principal); G70.00 Myasthenia gravis without (acute) exacerbation

== ENCOUNTER → 2020-09-25 | Outpatient (CLI) | payer BC ==
[~2020-09-25] MED LIST changes: +OMEP40CA4 PO; -OMEP40CA97 PO
[2020-09-25 16:40] LABS: ALBUMIN 3.1 GM/DL (3.2-5.2); ALT/SGPT 14 U/L (12-78); BILIRUBIN,TOTAL 0.4 MG/DL (0.2-1.0); BLOOD UREA NITROGEN 10 MG/DL (7-18); CALCIUM LEVEL 8.8 MG/DL (8.5-10.1); CARBON DIOXIDE LEVEL 25 MEQ/L (21-32); CHLORIDE LEVEL 108 MEQ/L (98-107); CREATININE FOR GFR 0.69 MG/DL (0.55-1.30); GLOMERULAR FILTRATION RATE > 60.0 (>60); GLUCOSE, FASTING 90 MG/DL (70-100); POTASSIUM SERUM 4.1 MEQ/L (3.5-5.1); SODIUM LEVEL 138 MEQ/L (136-145); TOTAL PROTEIN 7.1 GM/DL (6.4-8.2)
[2020-09-25 16:49] LABS: TOTAL 25(OH) VITAMIN D 32.5 NG/ML (30.0-100.0)
[2020-09-25 16:58] LABS: HEMOGLOBIN A1c 5.5 %
== END ==
LOC: M LAB 15:35
PROVIDERS: ATTEND Nurse Practitioner Adult Health
DX: E28.2 Polycystic ovarian syndrome (principal); E55.9 Vitamin D deficiency, unspecified

== ENCOUNTER → 2020-10-12 | Outpatient (REF) | payer BC ==
[~2020-10-12] MED LIST changes: +ETON1VAG3; +FLON27.5 NARES; -FLUC150T PO; +FLUC150T9 PO; +IBUP-1022 PO; +LEXA1TAB2 PO; +TIZA2TA
== END ==
LOC: M SFHCWAGY 10:15
PROVIDERS: ATTEND Advanced Practice Midwife
DX: Z12.4 Encounter for screening for malignant neoplasm of cervix (principal)

== ENCOUNTER 2020-11-20 00:13 | Emergency (ER) | payer OTHER, BC ==
[~2020-11-20] VITALS: Ht 162.6 cm; Wt 133.3 kg
[~2020-11-20 00:13] MED LIST changes: -ETON1VAG3; -FLON27.5 NARES; +FLUC150T PO; -FLUC150T9 PO; -IBUP-1022 PO; -LEXA1TAB2 PO; -TIZA2TA
[2020-11-20] MEDS ORDERED: LEXA1TAB2 PO (00:27)
[2020-11-20] MEDS ORDERED: FLON27.5 NARES (00:27)
[2020-11-20 08:17] VITALS: BP 145/90
[2020-11-20] MEDS ORDERED: IBUP-1022 PO (08:26)
--- NOTE | 2020-11-20 08:33 | REP ---
INDICATION: trauma. COMPARISON: None. TECHNIQUE: Three views sacrum and coccyx. FINDINGS: No fracture is visualized. Bowel gas limits evaluation of the sacrum and coccyx on the AP views. There is slight posterior subluxation of the lower coccyx with respect to the 1st coccygeal segment. This is likely a normal variant, although posttraumatic subluxation of indeterminate age cannot totally be excluded. IMPRESSION: There is slight posterior subluxation of the lower coccyx with respect to the 1st coccygeal segment. This is likely a normal variant, although posttraumatic subluxation of indeterminate age cannot totally be excluded. A preliminary report was provided by [facility] at the time of the exam. <Electronically signed by Fred Gooden > 11/20/20 [id number]
[2020-11-20] MEDS ORDERED: IBUPROFEN 600MG TAB PO ONE (08:35)
--- NOTE | 2020-11-20 11:25 | REP ---
INDICATION: trauma. COMPARISON: None. TECHNIQUE: Five views lumbosacral spine. FINDINGS: There is no compression fracture or malalignment. There is normal lumbar lordosis. Disc spaces are well preserved. There is spina bifida occulta of S1. Metallic clips are seen in the right upper quadrant. IMPRESSION: No acute fracture or dislocation. A preliminary report was provided by [facility] at the time of the exam. <Electronically signed by Fred Gooden > 11/20/20 [id number]
--- NOTE | 2020-11-20 11:25 | REP ---
INDICATION: fell holding hands out to brace fall COMPARISON: None. TECHNIQUE: Four views bilateral hands. FINDINGS: There is no evidence of acute fracture, dislocation, or intrinsic bone disease. IMPRESSION: No fracture or dislocation. A preliminary report was provided by [facility] at the time of the exam. <Electronically signed by Fred Gooden > 11/20/20 [id number]
== END 2020-11-20 08:42 | disposition home or self-care (01) ==
LOC: M ED 00:13
DX: S33.5XXA Sprain of ligaments of lumbar spine, initial encounter (principal); S66.911A Strain of unspecified muscle, fascia and tendon at wrist and hand level, right hand, initial encounter; S66.912A Strain of unspecified muscle, fascia and tendon at wrist and hand level, left hand, initial encounter; W07.XXXA Fall from chair, initial encounter; Y92.89 Other specified places as the place of occurrence of the external cause; Y99.0 Civilian activity done for income or pay; E11.9 Type 2 diabetes mellitus without complications; J45.909 Unspecified asthma, uncomplicated; F33.9 Major depressive disorder, recurrent, unspecified; F41.9 Anxiety disorder, unspecified; N32.81 Overactive bladder; Z79.899 Other long term (current) drug therapy; Z79.84 Long term (current) use of oral hypoglycemic drugs

== ENCOUNTER → 2021-01-16 | Outpatient (REF) | payer BC ==
[~2021-01-16] MED LIST changes: +FLON27.5 NARES; +IBUP-1022 PO; +LEXA1TAB2 PO
== END ==
LOC: M SFHCADAM 12:13
PROVIDERS: ATTEND Physician Assistant
DX: R05.8 Other specified cough (principal)

== ENCOUNTER → 2021-05-09 | Outpatient (REF) ==
[~2021-05-09] MED LIST changes: -FLUC150T PO; +FLUC150T9 PO
== END ==
LOC: M LABSMTC 13:36
PROVIDERS: ATTEND Family Medicine
DX: Z11.52 Encounter for screening for COVID-19 (principal); Z20.822 Contact with and (suspected) exposure to COVID-19

== ENCOUNTER 2021-05-15 12:12 | Emergency (ER) | payer BC, OTHER ==
[~2021-05-15] VITALS: Ht 162.6 cm; Wt 136.3 kg
[2021-05-15] MEDS ORDERED: TIZA2TA (12:22)
[2021-05-15] MEDS ORDERED: ETON1VAG3 (12:22)
[2021-05-15] MEDS ORDERED: predniSONE 20 MG TAB PO ONE (17:40)
[2021-05-15] MEDS ORDERED: PRED20TA PO (17:43)
[2021-05-15 18:14] VITALS: BP 136/79
== END 2021-05-15 18:16 | disposition home or self-care (01) ==
LOC: M ED 12:12
DX: J45.901 Unspecified asthma with (acute) exacerbation (principal); E11.9 Type 2 diabetes mellitus without complications; G47.30 Sleep apnea, unspecified; K21.9 Gastro-esophageal reflux disease without esophagitis; F33.9 Major depressive disorder, recurrent, unspecified; F41.9 Anxiety disorder, unspecified; E66.9 Obesity, unspecified; Z88.8 Allergy status to other drugs, medicaments and biological substances; Z91.018 Allergy to other foods; Z91.048 Other nonmedicinal substance allergy status; Z79.899 Other long term (current) drug therapy; Z79.84 Long term (current) use of oral hypoglycemic drugs; Z79.3 Long term (current) use of hormonal contraceptives
CPT/HCPCS: 71046; 93005; 99284; J7512

== ENCOUNTER → 2021-07-02 | Outpatient (CLI) | payer BC ==
[~2021-07-02] MED LIST changes: +ETON1VAG3; +TIZA2TA
[2021-07-02 18:17] LABS: HEMOGLOBIN A1c 5.5 %
[2021-07-02 18:27] LABS: ALBUMIN 3.1 GM/DL (3.2-5.2); ALT/SGPT 20 U/L (12-78); BILIRUBIN,TOTAL 0.2 MG/DL (0.2-1.0); BLOOD UREA NITROGEN 10 MG/DL (7-18); CALCIUM LEVEL 9.1 MG/DL (8.5-10.1); CARBON DIOXIDE LEVEL 26 MEQ/L (21-32); CHLORIDE LEVEL 110 MEQ/L (98-107); CREATININE FOR GFR 0.65 MG/DL (0.55-1.30); GLOMERULAR FILTRATION RATE > 60.0 (>60); GLUCOSE, FASTING 83 MG/DL (70-100); POTASSIUM SERUM 4.3 MEQ/L (3.5-5.1); SODIUM LEVEL 142 MEQ/L (136-145); TOTAL PROTEIN 7.2 GM/DL (6.4-8.2)
== END ==
LOC: M PLALAB 14:56
PROVIDERS: ATTEND Nurse Practitioner Adult Health
DX: E28.2 Polycystic ovarian syndrome (principal); E74.39 Other disorders of intestinal carbohydrate absorption; E55.9 Vitamin D deficiency, unspecified

== ENCOUNTER → 2022-01-02 | Outpatient (CLI) | payer BC ==
[~2022-01-02] MED LIST changes: -NORG1TAB4 PO; +NORG1TAB40 PO
[2022-01-02 17:40] LABS: ALT/SGPT 25 U/L (12-78); BILIRUBIN,TOTAL 0.2 MG/DL (0.2-1.0); BLOOD UREA NITROGEN 10 MG/DL (7-18); CALCIUM LEVEL 9.3 MG/DL (8.5-10.1); CARBON DIOXIDE LEVEL 27 MEQ/L (21-32); CHLORIDE LEVEL 108 MEQ/L (98-107); CREATININE FOR GFR 0.72 MG/DL (0.55-1.30); GLOMERULAR FILTRATION RATE > 60.0 (>60); GLUCOSE, FASTING 101 MG/DL (70-100); POTASSIUM SERUM 4.4 MEQ/L (3.5-5.1); SODIUM LEVEL 140 MEQ/L (136-145); TOTAL PROTEIN 6.6 GM/DL (6.4-8.2)
[2022-01-02 18:56] LABS: HEMOGLOBIN A1c 5.4 %
[2022-01-02 19:06] LABS: TOTAL 25(OH) VITAMIN D 65.5 NG/ML (30.0-100.0)
== END ==
LOC: M PLALAB 13:55
PROVIDERS: ATTEND Nurse Practitioner Adult Health
DX: M77.31 Calcaneal spur, right foot (principal); M79.671 Pain in right foot; E28.2 Polycystic ovarian syndrome; E55.9 Vitamin D deficiency, unspecified; E74.39 Other disorders of intestinal carbohydrate absorption; L65.9 Nonscarring hair loss, unspecified

== ENCOUNTER 2022-04-10 15:38 | Emergency (ER) | payer BC ==
[~2022-04-10] VITALS: Ht 162.6 cm; Wt 138.7 kg
[~2022-04-10 15:38] MED LIST changes: -DOXY-350 PO; +DOXY-444 PO
[2022-04-10 17:41] LABS: BASO % 0.1 % (0.0-1.0); EOS # 0.1 10^3/uL (0.0-0.5); EOS % 0.9 % (0.0-3.0); HEMATOCRIT 39.3 % (36.0-47.0); HEMOGLOBIN 12.8 g/dl (12.0-15.5); LYMPH # 3.6 10^3/uL (1.5-5.0); LYMPH % 34.9 % (24.0-44.0); MEAN CORPUSCULAR HGB CONC 32.6 g/dl (32.0-36.5); MEAN CORPUSCULAR VOLUME 82.9 fl (80.0-96.0); MONO # 0.4 10^3/uL (0.0-0.8); MONO % 3.6 % (2.0-8.0); NEUTROPHILS # 6.1 10^3/uL (1.5-8.5); NEUTROPHILS % 60.2 % (36.0-66.0); PLATELET COUNT, AUTOMATED 316 10^3/uL (150-450); RED BLOOD COUNT 4.74 10^6/uL (4.00-5.40); WHITE BLOOD COUNT 10.2 10^3/uL (4.0-10.0)
[2022-04-10 17:53] LABS: CK-MB VALUE MASS < 1.0 NG/ML (<3.6)
[2022-04-10 17:55] LABS: BLOOD UREA NITROGEN 10 MG/DL (9-23); CALCIUM LEVEL 8.8 MG/DL (8.5-10.1); CARBON DIOXIDE LEVEL 23 MMOL/L (20-31); CHLORIDE LEVEL 106 MMOL/L (98-107); CREATININE FOR GFR 0.59 MG/DL (0.55-1.30); GLOMERULAR FILTRATION RATE > 60.0 (>60); GLUCOSE, FASTING 86 MG/DL (60-100); POTASSIUM SERUM 4.2 MMOL/L (3.5-5.1); SODIUM LEVEL 139 MMOL/L (136-145)
[2022-04-10 17:57] LABS: THYROID STIMULATING HORMONE 1.618 uIU/ML (0.55-4.78)
[2022-04-10 17:58] LABS: FREE T4 1.07 NG/DL (0.89-1.76)
[2022-04-10 18:00] LABS: CPK CREATINE PHOSPHOKINASE 36 U/L (34-145); MB/CK RELATIVE INDEX 2.77 (< OR =4)
[2022-04-10 18:15] VITALS: BP 141/82
== END 2022-04-10 18:17 | disposition home or self-care (01) ==
LOC: M ED 15:38
DX: R06.02 Shortness of breath (principal); E28.2 Polycystic ovarian syndrome; F41.9 Anxiety disorder, unspecified; F32.A Depression, unspecified; J45.909 Unspecified asthma, uncomplicated; K21.9 Gastro-esophageal reflux disease without esophagitis; Z91.018 Allergy to other foods; Z91.040 Latex allergy status; Z91.048 Other nonmedicinal substance allergy status

== ENCOUNTER → 2023-01-13 | Outpatient (CLI) | payer BC ==
[2023-01-13 11:48] LABS: ALBUMIN 2.9 G/DL (3.2-5.2); ALKALINE PHOSPHATASE 110 U/L (46-116); ALT/SGPT 22 U/L (7.0-40); AST/SGOT 9 U/L (<34); BILIRUBIN,TOTAL 0.2 MG/DL (0.3-1.2); BLOOD UREA NITROGEN 11 MG/DL (9-23); CALCIUM LEVEL 8.8 MG/DL (8.5-10.1); CARBON DIOXIDE LEVEL 26 MMOL/L (20-31); CHLORIDE LEVEL 109 MMOL/L (98-107); CREATININE FOR GFR 0.65 MG/DL (0.55-1.30); GLOMERULAR FILTRATION RATE > 60.0 (>60); GLUCOSE, FASTING 101 MG/DL (60-100); POTASSIUM SERUM 4.1 MMOL/L (3.5-5.1); SODIUM LEVEL 142 MMOL/L (136-145); TOTAL PROTEIN 6.5 G/DL (5.7-8.2)
[2023-01-13 11:50] LABS: THYROID STIMULATING HORMONE 5.416 uIU/ML (0.55-4.78); TOTAL 25(OH) VITAMIN D 64.7 NG/ML (20.0-100.0)
[2023-01-13 11:54] LABS: HEMOGLOBIN A1c 4.9 % (4.0-6.0)
== END ==
LOC: M LAB 10:43
PROVIDERS: ATTEND Nurse Practitioner Adult Health
DX: E74.39 Other disorders of intestinal carbohydrate absorption (principal); E28.2 Polycystic ovarian syndrome; L65.9 Nonscarring hair loss, unspecified; E55.9 Vitamin D deficiency, unspecified

== ENCOUNTER 2023-02-01 18:39 | Emergency (ER) | payer BC ==
[~2023-02-01] VITALS: Ht 162.6 cm; Wt 138.8 kg
[2023-02-01 18:41] VITALS: BP 134/91; TEMP 96.9; O2SAT 96
[2023-02-01] MEDS ORDERED: DOXY100C82 PO (22:55)
== END 2023-02-01 23:04 | disposition home or self-care (01) ==
LOC: M ED 18:39
DX: J20.9 Acute bronchitis, unspecified (principal); E28.2 Polycystic ovarian syndrome; Z88.8 Allergy status to other drugs, medicaments and biological substances; Z91.048 Other nonmedicinal substance allergy status; Z91.018 Allergy to other foods; Z79.52 Long term (current) use of systemic steroids; Z79.4 Long term (current) use of insulin; Z79.83 Long term (current) use of bisphosphonates; Z79.899 Other long term (current) drug therapy

== ENCOUNTER 2023-02-17 15:37 | Emergency (ER) | payer BC ==
[~2023-02-17] VITALS: Ht 162.6 cm; Wt 146.6 kg
[~2023-02-17 15:37] MED LIST changes: +DOXY100C82 PO
[2023-02-17] MEDS ORDERED: methylPREDNISolone 125MG 2ML VIAL IV ONE (19:55)
[2023-02-17] MEDS: IPRATROPIUM 0.5MG/ALBUTEROL 2.5MG INH SOL UD 3ML (DUONEB) NEB PRN ×2 (20:18→21:52)
[2023-02-17 20:50] LABS: BASO % 0.2 % (0.0-1.0); EOS % 0.3 % (0.0-3.0); HEMATOCRIT 37.5 % (36.0-47.0); HEMOGLOBIN 12.4 g/dl (12.0-15.5); LYMPH # 3.1 10^3/uL (1.5-5.0); LYMPH % 25.8 % (24.0-44.0); MEAN CORPUSCULAR HEMOGLOBIN 27.4 pg (27.0-33.0); MEAN CORPUSCULAR HGB CONC 33.1 g/dl (32.0-36.5); MONO # 0.4 10^3/uL (0.0-0.8); MONO % 3.6 % (2.0-8.0); NEUTROPHILS # 8.5 10^3/uL (1.5-8.5); NEUTROPHILS % 69.9 % (36.0-66.0); PLATELET COUNT, AUTOMATED 257 10^3/uL (150-450); RED BLOOD COUNT 4.52 10^6/uL (4.00-5.40); WHITE BLOOD COUNT 12.1 10^3/uL (4.0-10.0)
[2023-02-17 21:15] LABS: CK-MB VALUE MASS < 1.0 NG/ML (<3.6)
[2023-02-17 21:17] LABS: ALBUMIN 2.9 G/DL (3.2-5.2); ALKALINE PHOSPHATASE 88 U/L (46-116); ALT/SGPT 17 U/L (7.0-40); AST/SGOT 11 U/L (<34); BILIRUBIN,DIRECT 0.1 MG/DL (<0.4); BILIRUBIN,TOTAL 0.4 MG/DL (0.3-1.2); BLOOD UREA NITROGEN 7 MG/DL (9-23); CALCIUM LEVEL 8.5 MG/DL (8.5-10.1); CARBON DIOXIDE LEVEL 22 MMOL/L (20-31); CHLORIDE LEVEL 108 MMOL/L (98-107); CPK CREATINE PHOSPHOKINASE 32 U/L (34-145); CREATININE FOR GFR 0.59 MG/DL (0.55-1.30); GLOMERULAR FILTRATION RATE > 60.0 (>60); GLUCOSE, FASTING 91 MG/DL (60-100); MB/CK RELATIVE INDEX 3.12 (< OR =4); SODIUM LEVEL 140 MMOL/L (136-145); TOTAL PROTEIN 6.7 G/DL (5.7-8.2)
[2023-02-17 21:19] LABS: THYROID STIMULATING HORMONE 1.679 uIU/ML (0.55-4.78); THYROXINE (T4) 9.9 UG/DL (4.5-10.9)
[2023-02-17] MEDS ORDERED: NIRM1TAB PO (22:37)
[2023-02-17] MEDS ORDERED: PRED20TA PO (22:37)
[2023-02-17 23:11] VITALS: BP 150/98; TEMP 98; O2SAT 98
== END 2023-02-17 23:12 | disposition home or self-care (01) ==
LOC: M ED 15:37
DX: J45.901 Unspecified asthma with (acute) exacerbation (principal); U07.1 COVID-19; Z91.048 Other nonmedicinal substance allergy status; Z88.8 Allergy status to other drugs, medicaments and biological substances; Z79.899 Other long term (current) drug therapy; Z79.51 Long term (current) use of inhaled steroids; Z79.84 Long term (current) use of oral hypoglycemic drugs; Z79.1 Long term (current) use of non-steroidal anti-inflammatories (NSAID)
CPT/HCPCS: 71046; 80047; 80048; 80076; 82550; 82553; 83880; 84436; 84443; 84484; 84702; 85025; 87486; 87581; 87633; 87798; 94640; 94760; 96374; 99284; J2930

== ENCOUNTER → 2023-03-05 | Outpatient (REF) | payer BC ==
[~2023-03-05] MED LIST changes: +NIRM1TAB PO
[2023-03-05 19:24] LABS: AMORPHOUS SEDIMENT LARGE (NEGATIVE); APPEARANCE, URINE TURBID (CLEAR); BACTERIA, URINE AUTO NEGATIVE (NEGATIVE); BILIRUBIN, URINE AUTO NEGATIVE (NEGATIVE); BLOOD, URINE BLOOD NEGATIVE (NEGATIVE); COLOR, URINE YELLOW (YELLOW); GLUCOSE, URINE (UA) AUTO NEGATIVE (NEGATIVE); KETONE, URINE AUTO NEGATIVE (NEGATIVE); LEUKOCYTE ESTERASE, URINE AUTO NEGATIVE (NEGATIVE); MUCUS, URINE LARGE (NEGATIVE); NITRITE, URINE AUTO NEGATIVE (NEGATIVE); PROTEIN, URINE AUTO NEGATIVE (NEGATIVE); RBC, URINE AUTO 0 /HPF (0-3); SPECIFIC GRAVITY URINE AUTO 1.025 (1.002-1.035); SQUAMOUS EPITHELIAL CELL UR AU 0 /HPF (0-6); UROBILINOGEN, URINE AUTO 0.2 mg/dL (0.0-2.0); WBC, URINE AUTO 0 /HPF (0-3)
== END ==
LOC: M LABSMT 13:57
PROVIDERS: ATTEND Specialist
DX: N32.81 Overactive bladder (principal)

== ENCOUNTER 2023-03-18 22:17 | Emergency (ER) | payer BC, SELFPAY ==
[~2023-03-18] VITALS: Ht 162.6 cm; Wt 147.1 kg
[2023-03-18] MEDS ORDERED: COLE625T (22:28)
[2023-03-18] MEDS ORDERED: EMGA120I (22:28)
[2023-03-18] MEDS ORDERED: MAGN400T2 PO (22:28)
[2023-03-18] MEDS ORDERED: vitamin D PO (22:28)
[2023-03-18] MEDS ORDERED: MULTTAB20 PO (22:28)
[2023-03-19] MEDS ORDERED: ALBUTEROL SULFATE 2.5MG/0.5ML INH NEB SOLN NEB ONE (01:30)
[2023-03-19] MEDS ORDERED: PRED20TA PO (01:48)
[2023-03-19] MEDS ORDERED: predniSONE 20 MG TAB PO ONE (01:50)
[2023-03-19 02:05] VITALS: BP 142/80; TEMP 97.4; O2SAT 97
== END 2023-03-19 02:07 | disposition home or self-care (01) ==
LOC: M ED 22:17
DX: J45.901 Unspecified asthma with (acute) exacerbation (principal); L23.6 Allergic contact dermatitis due to food in contact with the skin; E28.2 Polycystic ovarian syndrome; G43.909 Migraine, unspecified, not intractable, without status migrainosus; E66.9 Obesity, unspecified; G47.33 Obstructive sleep apnea (adult) (pediatric); Z86.16 Personal history of COVID-19; Z79.52 Long term (current) use of systemic steroids; Z79.83 Long term (current) use of bisphosphonates; Z79.810 Long term (current) use of selective estrogen receptor modulators (SERMs); Z79.899 Other long term (current) drug therapy; Z88.8 Allergy status to other drugs, medicaments and biological substances; Z91.018 Allergy to other foods; Z91.048 Other nonmedicinal substance allergy status
CPT/HCPCS: 71046; 94640; 99283; J7512

== ENCOUNTER 2023-04-08 15:35 | Emergency (ER) | payer BC, SELFPAY ==
[~2023-04-08] VITALS: Ht 162.6 cm; Wt 315.0 kg
[~2023-04-08 15:35] MED LIST changes: +COLE625T; +EMGA120I; +MAGN400T2 PO; +MULTTAB20 PO; +vitamin D PO
[2023-04-08 15:36] VITALS: TEMP 97.9
[2023-04-08] MEDS ORDERED: IPRATROPIUM 0.5MG/ALBUTEROL 2.5MG INH SOL UD 3ML (DUONEB) NEB ONE (20:25)
[2023-04-08 20:55] LABS: BASO % 0.3 % (0.0-1.0); EOS # 0.1 10^3/uL (0.0-0.5); EOS % 1.4 % (0.0-3.0); HEMOGLOBIN 12.9 g/dl (12.0-15.5); LYMPH # 3.7 10^3/uL (1.5-5.0); LYMPH % 41.3 % (24.0-44.0); MEAN CORPUSCULAR HEMOGLOBIN 27.6 pg (27.0-33.0); MEAN CORPUSCULAR HGB CONC 33.1 g/dl (32.0-36.5); MEAN CORPUSCULAR VOLUME 83.3 fl (80.0-96.0); MONO # 0.5 10^3/uL (0.0-0.8); MONO % 5.8 % (2.0-8.0); NEUTROPHILS # 4.6 10^3/uL (1.5-8.5); NEUTROPHILS % 51.1 % (36.0-66.0); PLATELET COUNT, AUTOMATED 278 10^3/uL (150-450); RED BLOOD COUNT 4.68 10^6/uL (4.00-5.40); WHITE BLOOD COUNT 9.1 10^3/uL (4.0-10.0)
[2023-04-08 21:22] LABS: BLOOD UREA NITROGEN 12 MG/DL (9-23); CALCIUM LEVEL 8.5 MG/DL (8.5-10.1); CARBON DIOXIDE LEVEL 22 MMOL/L (20-31); CHLORIDE LEVEL 110 MMOL/L (98-107); CREATININE FOR GFR 0.62 MG/DL (0.55-1.30); GLOMERULAR FILTRATION RATE > 60.0 (>60); GLUCOSE, FASTING 72 MG/DL (60-100); POTASSIUM SERUM 4.1 MMOL/L (3.5-5.1); SODIUM LEVEL 140 MMOL/L (136-145)
[2023-04-08] MEDS ORDERED: NS 1,000 ML IV ONE (21:55)
[2023-04-08] MEDS ORDERED: ISOVUE-370 76% 100ML VIAL As Ordered ONE (21:59)
[2023-04-09] MEDS ORDERED: COMBAER6 INH (00:57)
[2023-04-09 01:00] VITALS: BP 153/97; O2SAT 96
== END 2023-04-09 01:25 | disposition home or self-care (01) ==
LOC: M ED 15:35
DX: R06.02 Shortness of breath (principal); E86.0 Dehydration; U09.9 Post COVID-19 condition, unspecified; J45.909 Unspecified asthma, uncomplicated; K21.9 Gastro-esophageal reflux disease without esophagitis; R51.9 Headache, unspecified; Z91.048 Other nonmedicinal substance allergy status; Z88.2 Allergy status to sulfonamides; Z91.018 Allergy to other foods; Z88.8 Allergy status to other drugs, medicaments and biological substances; Z79.51 Long term (current) use of inhaled steroids; Z79.1 Long term (current) use of non-steroidal anti-inflammatories (NSAID); Z79.899 Other long term (current) drug therapy; Z79.52 Long term (current) use of systemic steroids
CPT/HCPCS: 71046; 71275; 80048; 85025; 87486; 87581; 87633; 87798; 94640; 96360; 99284; Q9967

== ENCOUNTER → 2023-07-02 | Outpatient (REF) | payer BC ==
[~2023-07-02] MED LIST changes: +COMBAER6 INH; +MONT5TAB7 PO; -SING5CHW23 PO
== END ==
LOC: M PLALAB 10:12
PROVIDERS: ATTEND Advanced Practice Midwife
DX: Z01.419 Encounter for gynecological examination (general) (routine) without abnormal findings (principal); Z12.4 Encounter for screening for malignant neoplasm of cervix; Z11.51 Encounter for screening for human papillomavirus (HPV)

== ENCOUNTER 2023-08-08 23:43 | Emergency (ER) | payer BC ==
[~2023-08-08] VITALS: Ht 162.6 cm; Wt 145.5 kg
[~2023-08-08 23:43] MED LIST changes: +DOXY-440 PO; -DOXY-444 PO
[2023-08-08 23:44] VITALS: BP 163/74; TEMP 97.9; O2SAT 99
[2023-08-09] MEDS ORDERED: IBUP-1022 PO (01:17)
[2023-08-09] MEDS: IBUPROFEN 600MG TAB PO ONE (01:31)
== END 2023-08-09 01:44 | disposition home or self-care (01) ==
LOC: M ED 23:43
DX: S63.501A Unspecified sprain of right wrist, initial encounter (principal); W19.XXXA Unspecified fall, initial encounter; G47.33 Obstructive sleep apnea (adult) (pediatric); E11.9 Type 2 diabetes mellitus without complications; Y92.009 Unspecified place in unspecified non-institutional (private) residence as the place of occurrence of the external cause; Y93.9 Activity, unspecified; Y99.9 Unspecified external cause status; Z91.048 Other nonmedicinal substance allergy status; Z91.018 Allergy to other foods; Z88.8 Allergy status to other drugs, medicaments and biological substances; Z79.52 Long term (current) use of systemic steroids; Z79.83 Long term (current) use of bisphosphonates; Z79.82 Long term (current) use of aspirin; Z79.899 Other long term (current) drug therapy

== ENCOUNTER 2023-09-07 19:09 | Emergency (ER) | payer BC ==
[~2023-09-07] VITALS: Ht 162.6 cm; Wt 143.5 kg
[2023-09-08] MEDS ORDERED: PRED20TA PO (01:02)
[2023-09-08 01:41] VITALS: BP 134/90; TEMP 97.8; O2SAT 99
== END 2023-09-08 01:43 | disposition home or self-care (01) ==
LOC: M ED 19:09
DX: M79.652 Pain in left thigh (principal); J45.909 Unspecified asthma, uncomplicated; R51.9 Headache, unspecified; Z88.8 Allergy status to other drugs, medicaments and biological substances; Z91.048 Other nonmedicinal substance allergy status; Z91.018 Allergy to other foods; Z79.52 Long term (current) use of systemic steroids; Z79.1 Long term (current) use of non-steroidal anti-inflammatories (NSAID); Z79.810 Long term (current) use of selective estrogen receptor modulators (SERMs); Z79.899 Other long term (current) drug therapy

== ENCOUNTER 2023-09-21 12:08 | Observation (INO) | payer BC ==
[~2023-09-21] VITALS: Ht 162.6 cm; Wt 143.0 kg
[2023-09-21 14:12] LABS: LIPASE 27 U/L (12-53)
[2023-09-21 14:14] LABS: ALBUMIN 3.4 G/DL (3.2-5.2); ALKALINE PHOSPHATASE 118 U/L (46-116); ALT/SGPT 34 U/L (7.0-40); AST/SGOT 16 U/L (<34); BILIRUBIN,DIRECT < 0.1 MG/DL (<0.4); BILIRUBIN,TOTAL 0.3 MG/DL (0.3-1.2); BLOOD UREA NITROGEN 7 MG/DL (9-23); CALCIUM LEVEL 8.8 MG/DL (8.5-10.1); CARBON DIOXIDE LEVEL 22 MMOL/L (20-31); CHLORIDE LEVEL 109 MMOL/L (98-107); CREATININE FOR GFR 0.64 MG/DL (0.55-1.30); GLOMERULAR FILTRATION RATE > 60.0 (>60); GLUCOSE, FASTING 115 MG/DL (60-100); POTASSIUM SERUM 3.7 MMOL/L (3.5-5.1); SODIUM LEVEL 139 MMOL/L (136-145)
[2023-09-21 14:21] LABS: HCG, SERUM QUALITATIVE NEGATIVE (NEGATIVE)
[2023-09-21 14:25] LABS: BASO % 0.2 % (0.0-1.0); EOS # 0.1 10^3/uL (0.0-0.5); EOS % 0.6 % (0.0-3.0); HEMATOCRIT 41.4 % (36.0-47.0); HEMOGLOBIN 13.7 g/dl (12.0-15.5); LYMPH % 23.7 % (24.0-44.0); MEAN CORPUSCULAR HEMOGLOBIN 27.2 pg (27.0-33.0); MEAN CORPUSCULAR HGB CONC 33.1 g/dl (32.0-36.5); MEAN CORPUSCULAR VOLUME 82.1 fl (80.0-96.0); MONO # 0.7 10^3/uL (0.0-0.8); MONO % 4.1 % (2.0-8.0); NEUTROPHILS # 12.1 10^3/uL (1.5-8.5); NEUTROPHILS % 70.9 % (36.0-66.0); PLATELET COUNT, AUTOMATED 276 10^3/uL (150-450); RED BLOOD COUNT 5.04 10^6/uL (4.00-5.40); WHITE BLOOD COUNT 17.1 10^3/uL (4.0-10.0)
[2023-09-21] MEDS: MORPHINE 4 MG/ML 1ML VIAL IV ONE (15:10)
[2023-09-21] MEDS: METOCLOPRAMIDE INJ 10MG/2ML VIAL IV ONE (15:10)
[2023-09-21] MEDS: NS 1,000 ML IV ONE (15:11)
[2023-09-21] MEDS: MORPHINE 2 MG/ML 1ML VIAL IV ONE (15:58)
[2023-09-21] MEDS ORDERED: ISOVUE-370 76% 100ML VIAL As Ordered ONE (15:59)
[2023-09-21] MEDS: PIPERACILLIN/TAZOBACTAM SOD 4.5 GM in D5W MINI-BAG PLUS 50 ML IV ONE (16:59)
[2023-09-21] MEDS ORDERED: ONDANSETRON 4MG 2ML VIAL IV PRN (17:45)
[2023-09-21] MEDS ORDERED: NORCO, ANEXSIA 5/325MG TABLET (HYDROcodone/ACETAMINOPHEN) PO PRN (17:45)
[2023-09-21] MEDS ORDERED: propofoL 200 MG/20 ML VIAL As Ordered ONE (19:14)
[2023-09-21] MEDS ORDERED: ACETAMINOPHEN 1000MG 100ML IV BAG As Ordered ONE (19:14)
[2023-09-21] MEDS ORDERED: fentaNYL 250 MCG/5 ML INJECTION As Ordered ONE (19:14)
[2023-09-21] MEDS ORDERED: SUGAMMADEX SODIUM 500 MG/5 ML VIAL (BRIDION) As Ordered ONE (19:14)
[2023-09-21] MEDS ORDERED: SUCCINYLCHOLINE 100MG/5ML SYRINGE As Ordered ONE (19:14)
[2023-09-21] MEDS ORDERED: LIDOCAINE 2% 100MG/5ML SDV (FOR ANES.) As Ordered ONE (19:14)
[2023-09-21] MEDS ORDERED: KETOROLAC 60MG 2ML VIAL As Ordered ONE (19:14)
[2023-09-21] MEDS ORDERED: MIDAZOLAM INJ 2MG/2ML VIAL As Ordered ONE (19:14)
[2023-09-21] MEDS ORDERED: ROCURONIUM BROMIDE 50MG/5ML VIAL As Ordered ONE (19:14)
[2023-09-21] MEDS ORDERED: methylPREDNISolone 40MG 1ML VIAL As Ordered ONE (19:14)
[2023-09-21] MEDS ORDERED: fentaNYL 100 MCG/2 ML INJECTION IV PRN (19:40)
[2023-09-21] MEDS ORDERED: METOCLOPRAMIDE INJ 10MG/2ML VIAL IV PRN (19:40)
[2023-09-21] MEDS ORDERED: MEPERIDINE 25 MG/ML 1ML VIAL IV PRN (19:40)
[2023-09-21] MEDS ORDERED: diphenhydrAMINE 50MG/ML VIAL IV PRN (19:40)
[2023-09-21] MEDS: oxyCODONE 5MG TAB PO PRN (20:12)
[2023-09-21] MEDS: HYDROMORPHONE HCL 0.5 MG/ 0.5 ML SYRINGE IV PRN (20:13)
[2023-09-21 20:30] VITALS: BP_SYST 104; BP_SYST 110; BP_DIAS 56; BP_DIAS 58; TEMP 97.2; TEMP 97.5; O2SAT 94; O2SAT 96
[2023-09-21] MEDS: ALBUTEROL SULFATE 2.5MG/0.5ML INH NEB SOLN INH ONE (20:42)
[2023-09-21] MEDS: LR 1,000 ML IV SCH (20:42)
[2023-09-21 21:00] VITALS: BP 130/81; TEMP 97.7; O2SAT 95
[2023-09-21] MEDS: NS 1,000 ML IV SCH (21:06)
[2023-09-21 21:30] VITALS: BP 123/77; TEMP 97.7; O2SAT 96
[2023-09-21 22:30] VITALS: BP 122/72; TEMP 97.6; O2SAT 95
[2023-09-21] MEDS: PIPERACILLIN/TAZOBACTAM SOD 3.375 GM in D5W MINI-BAG PLUS 50 ML IV SCH (22:52)
[2023-09-21] MEDS: SENOKOT S TAB PO SCH (22:53)
[2023-09-21] MEDS: KETOROLAC 30 MG/ML 1ML VIAL IV PRN (22:53)
[2023-09-21] MEDS ORDERED: VITA500030 PO (23:59)
[2023-09-21] MEDS ORDERED: METO10TA2 PO (23:59)
[2023-09-21] MEDS ORDERED: ETON68IM SC (23:59)
[2023-09-21] MEDS ORDERED: SUMA100T2 PO (23:59)
[2023-09-21] MEDS ORDERED: FLON1SPR NARES (23:59)
[2023-09-21] MEDS ORDERED: MONT10TA97 PO (23:59)
[2023-09-21] MEDS ORDERED: COLE625T PO (23:59)
[2023-09-21] MEDS ORDERED: EMGA120I SC (23:59)
[2023-09-21] MEDS ORDERED: MAGN400T33 PO (23:59)
[2023-09-21] MEDS ORDERED: TRAZ-189 PO (23:59)
[2023-09-21] MEDS ORDERED: ALBU8.5H INH (23:59)
[2023-09-21] MEDS ORDERED: MULTTAB20 PO (23:59)
[2023-09-21] MEDS ORDERED: TIZA1TAB12 PO (23:59)
[2023-09-21] MEDS ORDERED: METF-838 PO (23:59)
[2023-09-21] MEDS ORDERED: IBUP1TAB6 PO (23:59)
[2023-09-21] MEDS ORDERED: VIBE75TA PO (23:59)
[2023-09-22] MEDS ORDERED: HOME MED LIST COMPLETE! XX SCH (00:05)
[2023-09-22 00:30] VITALS: BP 119/71; TEMP 97.3; O2SAT 92
[2023-09-22 01:30] VITALS: BP 115/68; TEMP 97.2; O2SAT 93
[2023-09-22] MEDS ORDERED: PILL CUTTER 1 EACH XX PRN (01:45)
[2023-09-22] MEDS: MAGNESIUM OXIDE 400MG TAB (MAG-OX) PO SCH (02:06)
[2023-09-22] MEDS: MONTELUKAST 10 MG TAB PO SCH (02:06)
[2023-09-22] MEDS: tiZANidine 4 MG TAB PO PRN (02:06)
[2023-09-22] MEDS: NORCO, ANEXSIA 5/325MG TABLET (HYDROcodone/ACETAMINOPHEN) PO PRN (02:34)
[2023-09-22 05:34] VITALS: BP 131/83; TEMP 97.9; O2SAT 97
[2023-09-22 06:17] LABS: HEMATOCRIT 37.2 % (36.0-47.0); HEMOGLOBIN 12.6 g/dl (12.0-15.5); MEAN CORPUSCULAR HEMOGLOBIN 27.4 pg (27.0-33.0); MEAN CORPUSCULAR HGB CONC 33.9 g/dl (32.0-36.5); MEAN CORPUSCULAR VOLUME 80.9 fl (80.0-96.0); PLATELET COUNT, AUTOMATED 274 10^3/uL (150-450)
[2023-09-22] MEDS ORDERED: HYDR-3715 PO (07:09)
[2023-09-22] MEDS ORDERED: AMOX500T2 PO (07:09)
[2023-09-22] MEDS: ESCITALOPRAM OXALATE 10 MG TAB (LEXAPRO) PO SCH (08:27)
[2023-09-22] MEDS: COLESEVELAM 625 MG TAB (WELCHOL) PO SCH (08:28)
== END 2023-09-22 10:00 | disposition home or self-care (01) ==
LOC: M ED 12:08 → M SDC 17:42 → M ED INP 22:14 → M MS5PR 22:30
PROVIDERS: ADMIT Surgery; ATTEND Surgery
DX: K35.890 Other acute appendicitis without perforation or gangrene (principal); J45.909 Unspecified asthma, uncomplicated; E28.2 Polycystic ovarian syndrome; E11.9 Type 2 diabetes mellitus without complications; Z79.51 Long term (current) use of inhaled steroids; Z79.899 Other long term (current) drug therapy; Z91.018 Allergy to other foods; Z88.8 Allergy status to other drugs, medicaments and biological substances
CPT/HCPCS: 36415; 44970; 74177; 80048; 80076; 81001; 83605; 83690; 84703; 85025; 85027; 88304; 96365; 96366; 96375; 96376; 99284; J0131; J0330; J0665; J1170; J1885; J2250; J2543; J2765; J2919; J3010; Q9967

== ENCOUNTER 2023-09-26 16:25 | Emergency (ER) | payer BC ==
[~2023-09-26] VITALS: Ht 162.6 cm; Wt 137.8 kg
[~2023-09-26 16:25] MED LIST changes: +ALBU8.5H INH; +AMOX500T2 PO; +COLE625T PO; +EMGA120I SC; +ETON68IM SC; +FLON1SPR NARES; +HYDR-3715 PO; +IBUP1TAB6 PO; +MAGN400T33 PO; +METO10TA2 PO; +MONT10TA97 PO; +SUMA100T2 PO; +TIZA1TAB12 PO; +TRAZ-189 PO; +VIBE75TA PO; +VITA500030 PO
[2023-09-26 18:06] LABS: BASO % 0.2 % (0.0-1.0); EOS # 0.2 10^3/uL (0.0-0.5); EOS % 1.5 % (0.0-3.0); HEMATOCRIT 38.7 % (36.0-47.0); HEMOGLOBIN 12.8 g/dl (12.0-15.5); LYMPH # 3.3 10^3/uL (1.5-5.0); LYMPH % 20.2 % (24.0-44.0); MEAN CORPUSCULAR HEMOGLOBIN 27.2 pg (27.0-33.0); MEAN CORPUSCULAR HGB CONC 33.1 g/dl (32.0-36.5); MEAN CORPUSCULAR VOLUME 82.3 fl (80.0-96.0); MONO # 0.7 10^3/uL (0.0-0.8); MONO % 4.4 % (2.0-8.0); NEUTROPHILS # 12.1 10^3/uL (1.5-8.5); NEUTROPHILS % 73.3 % (36.0-66.0); PLATELET COUNT, AUTOMATED 255 10^3/uL (150-450); WHITE BLOOD COUNT 16.4 10^3/uL (4.0-10.0)
[2023-09-26 18:27] LABS: LIPASE 23 U/L (12-53)
[2023-09-26 18:29] LABS: ALBUMIN 3.1 G/DL (3.2-5.2); ALKALINE PHOSPHATASE 116 U/L (46-116); ALT/SGPT 42 U/L (7.0-40); AST/SGOT 19 U/L (<34); BILIRUBIN,DIRECT 0.3 MG/DL (<0.4); BILIRUBIN,TOTAL 0.7 MG/DL (0.3-1.2); BLOOD UREA NITROGEN 9 MG/DL (9-23); CALCIUM LEVEL 9.1 MG/DL (8.5-10.1); CARBON DIOXIDE LEVEL 23 MMOL/L (20-31); CHLORIDE LEVEL 108 MMOL/L (98-107); CREATININE FOR GFR 0.75 MG/DL (0.55-1.30); GLOMERULAR FILTRATION RATE > 60.0 (>60); GLUCOSE, FASTING 75 MG/DL (60-100); POTASSIUM SERUM 4.1 MMOL/L (3.5-5.1); SODIUM LEVEL 138 MMOL/L (136-145); TOTAL PROTEIN 6.6 G/DL (5.7-8.2)
[2023-09-26 18:40] LABS: HCG, SERUM QUALITATIVE NEGATIVE (NEGATIVE)
[2023-09-26] MEDS ORDERED: ISOVUE-370 76% 100ML VIAL As Ordered ONE (19:23)
[2023-09-26] MEDS ORDERED: MIRA3350 PO (21:58)
[2023-09-26] MEDS ORDERED: HYDR-3713 PO (21:58)
[2023-09-26] MEDS ORDERED: COLA100C5 PO (21:58)
[2023-09-26] MEDS: DOCUSATE SODIUM 100MG CAPSULE PO ONE (22:14)
[2023-09-26] MEDS: NORCO 5/325MG TABLET (HOME DOSE PACK) PO ONE (22:15)
[2023-09-26 22:25] VITALS: BP 110/62; TEMP 96.9; O2SAT 99
== END 2023-09-26 22:28 | disposition home or self-care (01) ==
LOC: M ED 16:25
DX: G89.18 Other acute postprocedural pain (principal); K59.00 Constipation, unspecified; Z90.89 Acquired absence of other organs; Z90.49 Acquired absence of other specified parts of digestive tract; Z79.52 Long term (current) use of systemic steroids; Z79.4 Long term (current) use of insulin; Z79.83 Long term (current) use of bisphosphonates; Z79.2 Long term (current) use of antibiotics; Z79.1 Long term (current) use of non-steroidal anti-inflammatories (NSAID); Z91.048 Other nonmedicinal substance allergy status; Z88.8 Allergy status to other drugs, medicaments and biological substances; Z91.018 Allergy to other foods
CPT/HCPCS: 36415; 74177; 80048; 80076; 81001; 83605; 83690; 84703; 85025; 87040; 87086; 93041; 99284; Q9967

== ENCOUNTER → 2023-12-04 | Outpatient (CLI) | payer BC ==
[~2023-12-04] MED LIST changes: +COLA100C5 PO; +HYDR-3713 PO; +MIRA3350 PO
[2023-12-04 17:43] LABS: HEMATOCRIT 40.6 % (36.0-47.0); HEMOGLOBIN 13.2 g/dl (12.0-15.5); MEAN CORPUSCULAR HEMOGLOBIN 27.3 pg (27.0-33.0); MEAN CORPUSCULAR HGB CONC 32.5 g/dl (32.0-36.5); MEAN CORPUSCULAR VOLUME 83.9 fl (80.0-96.0); PLATELET COUNT, AUTOMATED 299 10^3/uL (150-450); RED BLOOD COUNT 4.84 10^6/uL (4.00-5.40); WHITE BLOOD COUNT 9.3 10^3/uL (4.0-10.0)
[2023-12-04 18:03] LABS: BLOOD UREA NITROGEN 10 MG/DL (9-23); CALCIUM LEVEL 9.1 MG/DL (8.5-10.1); CARBON DIOXIDE LEVEL 24 MMOL/L (20-31); CHLORIDE LEVEL 108 MMOL/L (98-107); GLOMERULAR FILTRATION RATE > 60.0 (>60); GLUCOSE, FASTING 102 MG/DL (60-100); POTASSIUM SERUM 3.5 MMOL/L (3.5-5.1); SODIUM LEVEL 140 MMOL/L (136-145)
== END ==
LOC: M LAB 16:53
PROVIDERS: ATTEND Specialist
DX: Z01.818 Encounter for other preprocedural examination (principal)

== ENCOUNTER → 2023-12-22 | Outpatient (REF) | payer BC ==
[2023-12-22 11:34] LABS: APPEARANCE, URINE HAZY (CLEAR); BACTERIA, URINE AUTO 2+ (NEGATIVE); BILIRUBIN, URINE AUTO NEGATIVE (NEGATIVE); BLOOD, URINE BLOOD NEGATIVE (NEGATIVE); CALCIUM OXALATE CRYSTALS SMALL; COLOR, URINE AMBER (YELLOW); GLUCOSE, URINE (UA) AUTO NEGATIVE (NEGATIVE); KETONE, URINE AUTO NEGATIVE (NEGATIVE); LEUKOCYTE ESTERASE, URINE AUTO NEGATIVE (NEGATIVE); MUCUS, URINE SMALL (NEGATIVE); NITRITE, URINE AUTO NEGATIVE (NEGATIVE); PROTEIN, URINE AUTO NEGATIVE (NEGATIVE); RBC, URINE AUTO 0 /HPF (0-3); SPECIFIC GRAVITY URINE AUTO 1.021 (1.002-1.035); SQUAMOUS EPITHELIAL CELL UR AU 7 /HPF (0-6); UROBILINOGEN, URINE AUTO 0.2 mg/dL (0.0-2.0); WBC, URINE AUTO 4 /HPF (0-3)
== END ==
LOC: M SMT 10:51
PROVIDERS: ATTEND Specialist
DX: Z01.818 Encounter for other preprocedural examination (principal)

== ENCOUNTER 2023-12-29 06:13 | Day surgery (SDC) | payer BC ==
[~2023-12-29] VITALS: Ht 162.6 cm; Wt 142.0 kg
[~2023-12-29 06:13] MED LIST changes: +LR 1,000 ML IV SCH
[2023-12-29] MEDS ORDERED: ONDANSETRON 4MG 2ML VIAL As Ordered ONE (06:45)
[2023-12-29] MEDS ORDERED: VASOPRESSIN INJ 20UNITS/ML 1ML VIAL As Ordered ONE (06:45)
[2023-12-29] MEDS ORDERED: SUGAMMADEX SODIUM 500 MG/5 ML VIAL (BRIDION) As Ordered ONE (06:46)
[2023-12-29] MEDS ORDERED: LIDOCAINE 2% 100MG/5ML SDV (FOR ANES.) As Ordered ONE (06:46)
[2023-12-29] MEDS ORDERED: ROCURONIUM BROMIDE 50MG/5ML VIAL As Ordered ONE (06:46)
[2023-12-29] MEDS ORDERED: propofoL 200 MG/20 ML VIAL As Ordered ONE (06:49)
[2023-12-29] MEDS ORDERED: fentaNYL 100 MCG/2 ML INJECTION As Ordered ONE (06:55)
[2023-12-29] MEDS ORDERED: MIDAZOLAM INJ 2MG/2ML VIAL As Ordered ONE (06:57)
[2023-12-29] MEDS ORDERED: dexmedeTOMIDine (4MCG/ML)200MCG/50ML BTL (PRECEDEX) As Ordered ONE (07:15)
[2023-12-29] MEDS: ceFAZolin SOD 1 GM in D5W MINI-BAG PLUS 50 ML IV ONE (07:47)
[2023-12-29] MEDS: ceFAZolin SOD 2 GM in IV 1 EA IV ONE (07:47)
[2023-12-29] MEDS: ceFAZolin 1GM VIAL As Ordered ONE (08:20)
[2023-12-29] MEDS: SODIUM BICARBONATE 4.2% INJ 10ML SYRINGE As Ordered ONE (08:28)
[2023-12-29] MEDS: LIDOCAINE 1% SDV 30ML VIAL As Ordered ONE (08:30)
[2023-12-29] MEDS: SODIUM BICARBONATE 8.4% INJ 50ML SYRINGE As Ordered ONE (08:30)
[2023-12-29] MEDS ORDERED: MEPERIDINE 25 MG/ML 1ML VIAL IV PRN (10:05)
[2023-12-29] MEDS ORDERED: fentaNYL 100 MCG/2 ML INJECTION IV PRN (10:05)
[2023-12-29] MEDS ORDERED: diphenhydrAMINE 50MG/ML VIAL IV PRN (10:05)
[2023-12-29] MEDS ORDERED: METOCLOPRAMIDE INJ 10MG/2ML VIAL IV PRN (10:05)
[2023-12-29] MEDS: oxyCODONE 5MG TAB PO PRN (10:09)
[2023-12-29 10:45] VITALS: BP 122/72; TEMP 97.7; O2SAT 98
== END 2023-12-29 10:45 | disposition home or self-care (01) ==
LOC: M SDC 06:13
PROVIDERS: ATTEND Specialist
DX: N39.41 Urge incontinence (principal); E28.2 Polycystic ovarian syndrome; G43.909 Migraine, unspecified, not intractable, without status migrainosus; K21.9 Gastro-esophageal reflux disease without esophagitis; F41.9 Anxiety disorder, unspecified; F32.A Depression, unspecified; J45.909 Unspecified asthma, uncomplicated; Z79.51 Long term (current) use of inhaled steroids; Z79.899 Other long term (current) drug therapy; Z79.84 Long term (current) use of oral hypoglycemic drugs; Z91.018 Allergy to other foods; Z88.8 Allergy status to other drugs, medicaments and biological substances
CPT/HCPCS: 64561; 64590; 76000; 81025; C1778; C1787; C1894; J0690; J1100; J2250; J2598; J3010

== ENCOUNTER 2024-01-06 17:26 | Emergency (ER) | payer BC ==
[~2024-01-06] VITALS: Ht 162.6 cm; Wt 144.0 kg
[~2024-01-06 17:26] MED LIST changes: -LR 1,000 ML IV SCH
[2024-01-06 20:43] VITALS: BP 122/58; TEMP 97.9; O2SAT 98
== END 2024-01-06 20:54 | disposition home or self-care (01) ==
LOC: M ED 17:26
DX: T81.30XA Disruption of wound, unspecified, initial encounter (principal); E11.9 Type 2 diabetes mellitus without complications; R51.9 Headache, unspecified; J45.909 Unspecified asthma, uncomplicated; K21.9 Gastro-esophageal reflux disease without esophagitis; E28.2 Polycystic ovarian syndrome; Z88.8 Allergy status to other drugs, medicaments and biological substances; Z91.048 Other nonmedicinal substance allergy status; Z79.52 Long term (current) use of systemic steroids; Z79.4 Long term (current) use of insulin; Z79.899 Other long term (current) drug therapy

== ENCOUNTER 2024-01-08 12:04 | Day surgery (SDC) | payer BC ==
[~2024-01-08] VITALS: Ht 162.6 cm; Wt 143.4 kg
[2024-01-08] MEDS ORDERED: MIDAZOLAM INJ 2MG/2ML VIAL As Ordered ONE (15:43)
[2024-01-08] MEDS ORDERED: LIDOCAINE 2% 100MG/5ML SDV (FOR ANES.) As Ordered ONE (15:43)
[2024-01-08] MEDS ORDERED: dexmedeTOMIDine (4MCG/ML)200MCG/50ML BTL (PRECEDEX) As Ordered ONE (15:43)
[2024-01-08] MEDS ORDERED: propofoL 200 MG/20 ML VIAL As Ordered ONE (15:43)
[2024-01-08] MEDS ORDERED: fentaNYL 100 MCG/2 ML INJECTION As Ordered ONE (15:43)
[2024-01-08] MEDS: ceFAZolin 1GM VIAL As Ordered ONE (16:00)
[2024-01-08] MEDS: LIDOCAINE 1% SDV 30ML VIAL As Ordered ONE (16:00)
[2024-01-08] MEDS ORDERED: METOCLOPRAMIDE INJ 10MG/2ML VIAL As Ordered ONE (16:02)
[2024-01-08] MEDS ORDERED: KETOROLAC 60MG 2ML VIAL As Ordered ONE (16:02)
[2024-01-08 16:33] VITALS: BP 116/80; TEMP 97.6; O2SAT 96
== END 2024-01-08 16:45 | disposition home or self-care (01) ==
LOC: M SDC 12:04
PROVIDERS: ATTEND Urology
DX: T81.31XA Disruption of external operation (surgical) wound, not elsewhere classified, initial encounter (principal); Z91.018 Allergy to other foods; Z88.8 Allergy status to other drugs, medicaments and biological substances
CPT/HCPCS: 13160; 81025; 87070; 87075; 87077; 87186; 87205; J0690; J1885; J2250; J2765; J3010

== ENCOUNTER 2024-02-02 10:57 | Emergency (ER) | payer BC ==
[~2024-02-02] VITALS: Ht 162.6 cm; Wt 138.3 kg
[2024-02-02] MEDS ORDERED: METOCLOPRAMIDE 5 MG TAB PO ONE (14:00)
[2024-02-02] MEDS: METOCLOPRAMIDE 10MG TAB PO ONE (14:31)
[2024-02-02 14:38] LABS: BASO % 0.3 % (0.0-1.0); EOS % 0.5 % (0.0-3.0); HEMATOCRIT 42.1 % (36.0-47.0); HEMOGLOBIN 13.9 g/dl (12.0-15.5); LYMPH # 2.5 10^3/uL (1.5-5.0); LYMPH % 64.1 % (24.0-44.0); MEAN CORPUSCULAR HEMOGLOBIN 27.1 pg (27.0-33.0); MEAN CORPUSCULAR VOLUME 82.1 fl (80.0-96.0); MONO # 0.3 10^3/uL (0.0-0.8); MONO % 7.1 % (2.0-8.0); NEUTROPHILS # 1.1 10^3/uL (1.5-8.5); NEUTROPHILS % 27.7 % (36.0-66.0); PLATELET COUNT, AUTOMATED 146 10^3/uL (150-450); RED BLOOD COUNT 5.13 10^6/uL (4.00-5.40)
[2024-02-02 14:53] LABS: BLOOD UREA NITROGEN 8 MG/DL (9-23); CALCIUM LEVEL 8.8 MG/DL (8.5-10.1); CARBON DIOXIDE LEVEL 26 MMOL/L (20-31); CHLORIDE LEVEL 109 MMOL/L (98-107); GLOMERULAR FILTRATION RATE > 60.0 (>60); GLUCOSE, FASTING 85 MG/DL (60-100); MAGNESIUM LEVEL 2.1 MG/DL (1.8-2.4); POTASSIUM SERUM 4.1 MMOL/L (3.5-5.1); SODIUM LEVEL 140 MMOL/L (136-145)
[2024-02-02 15:04] LABS: ERYTHROCYTE SEDIMENTATION RATE 21 mm/hr (0-20)
[2024-02-02 15:08] LABS: HCG, SERUM QUALITATIVE NEGATIVE (NEGATIVE)
[2024-02-02] MEDS: MECLIZINE 25 MG TABLET PO ONE (16:42)
[2024-02-02] MEDS: diazePAM 5MG TABLET PO ONE (16:52)
[2024-02-02] MEDS ORDERED: MECL-209 PO (18:21)
[2024-02-02 18:32] VITALS: BP 132/82; TEMP 96.6; O2SAT 97
== END 2024-02-02 18:36 | disposition home or self-care (01) ==
LOC: M ED 10:57
DX: R42 Dizziness and giddiness (principal); B34.1 Enterovirus infection, unspecified; B34.8 Other viral infections of unspecified site; J45.909 Unspecified asthma, uncomplicated; G43.909 Migraine, unspecified, not intractable, without status migrainosus; Z90.49 Acquired absence of other specified parts of digestive tract; Z91.048 Other nonmedicinal substance allergy status; Z91.018 Allergy to other foods; Z88.8 Allergy status to other drugs, medicaments and biological substances; Z79.52 Long term (current) use of systemic steroids; Z79.899 Other long term (current) drug therapy; Z79.1 Long term (current) use of non-steroidal anti-inflammatories (NSAID)

== ENCOUNTER → 2024-02-15 | Outpatient (CLI) | payer BC ==
[~2024-02-15] MED LIST changes: +MECL-209 PO
[2024-02-15 11:21] LABS: HEMATOCRIT 38.7 % (36.0-47.0); HEMOGLOBIN 12.8 g/dl (12.0-15.5); MEAN CORPUSCULAR HEMOGLOBIN 27.9 pg (27.0-33.0); MEAN CORPUSCULAR HGB CONC 33.1 g/dl (32.0-36.5); MEAN CORPUSCULAR VOLUME 84.3 fl (80.0-96.0); PLATELET COUNT, AUTOMATED 339 10^3/uL (150-450); RED BLOOD COUNT 4.59 10^6/uL (4.00-5.40)
[2024-02-15 11:46] LABS: HEMOGLOBIN A1c 5.1 % (4.0-6.0)
[2024-02-15 11:55] LABS: ALBUMIN 3.1 G/DL (3.2-5.2); ALKALINE PHOSPHATASE 133 U/L (35-104); ALT/SGPT 27 U/L (7.0-40); AST/SGOT 10 U/L (<34); BILIRUBIN,TOTAL 0.4 MG/DL (0.3-1.2); BLOOD UREA NITROGEN 10 MG/DL (9-23); CALCIUM LEVEL 8.9 MG/DL (8.5-10.1); CARBON DIOXIDE LEVEL 26 MMOL/L (20-31); CHLORIDE LEVEL 110 MMOL/L (98-107); CREATININE FOR GFR 0.66 MG/DL (0.55-1.30); GLOMERULAR FILTRATION RATE > 60.0 (>60); GLUCOSE, FASTING 100 MG/DL (60-100); POTASSIUM SERUM 4.2 MMOL/L (3.5-5.1); SODIUM LEVEL 142 MMOL/L (136-145); TOTAL PROTEIN 6.7 G/DL (5.7-8.2)
[2024-02-15 11:56] LABS: FREE T4 1.05 NG/DL (0.89-1.76)
== END ==
LOC: M LAB 10:37
PROVIDERS: ATTEND Nurse Practitioner Adult Health
DX: Z00.00 Encounter for general adult medical examination without abnormal findings (principal)

== ENCOUNTER → 2024-05-05 | Outpatient (REF) | payer BC | LOC: M SFHCPLAZ 14:28 | PROVIDERS: ATTEND Physician Assistant Medical | DX: J06.9 Acute upper respiratory infection, unspecified (principal) ==

== ENCOUNTER 2024-06-22 15:19 | Day surgery (SDC) | payer BC ==
[~2024-06-22] VITALS: Ht 162.6 cm; Wt 141.2 kg
[~2024-06-22 15:19] MED LIST changes: +DOXY-442 PO; -DOXY100C82 PO
[2024-06-22] MEDS ORDERED: AMOX500C PO (15:55)
[2024-06-22] MEDS ORDERED: ceFAZolin SOD 2 GM IV ONCE IV ONE (15:55)
[2024-06-22] MEDS ORDERED: LR 1,000 ML IV SCH (16:25)
[2024-06-22] MEDS ORDERED: GLUCAGON INJ 1MG VIAL SC PRN (16:25)
[2024-06-22] MEDS ORDERED: GLUCOSE 4 GM CHEW PO PRN (16:25)
[2024-06-22] MEDS ORDERED: DEXTROSE 50% 50ML SYRINGE IV PRN (16:25)
[2024-06-22] MEDS ORDERED: INSULIN LISPRO (NovoLOG) PER UNIT SC PRN (16:25)
[2024-06-22] MEDS ORDERED: propofoL 200 MG/20 ML VIAL As Ordered ONE (16:50)
[2024-06-22] MEDS ORDERED: LIDOCAINE 2% 100MG/5ML SDV (FOR ANES.) As Ordered ONE (16:50)
[2024-06-22] MEDS ORDERED: fentaNYL 100 MCG/2 ML INJECTION As Ordered ONE (16:51)
[2024-06-22] MEDS ORDERED: MIDAZOLAM INJ 2MG/2ML VIAL As Ordered ONE (16:51)
[2024-06-22] MEDS: ceFAZolin SOD 3 GM in DEXTROSE 5% (D5W) MINI-BAG PLU 1... IV ONE (17:38)
[2024-06-22] MEDS: ceFAZolin 1GM VIAL As Ordered ONE (17:55)
[2024-06-22] MEDS ORDERED: ACETAMINOPHEN 1000MG/100ML IV BAG As Ordered ONE (17:56)
[2024-06-22] MEDS: SODIUM BICARBONATE 4.2% 0.5MEQ/ML 5ML VIAL (FOR USE FOR INFANT SYRINGE) As Ordered ONE (18:30)
[2024-06-22] MEDS: LIDOCAINE 1% SDV 30ML VIAL As Ordered ONE (18:30)
[2024-06-22] MEDS ORDERED: KETOROLAC 30 MG/ML 1ML VIAL As Ordered ONE (18:41)
[2024-06-22] MEDS: oxyCODONE 5MG TAB PO STA (19:40)
[2024-06-22 20:00] VITALS: BP 134/91; TEMP 97.7; O2SAT 96
== END 2024-06-22 20:08 | disposition home or self-care (01) ==
LOC: M SDC 15:19
PROVIDERS: ATTEND Specialist
DX: T81.49XA Infection following a procedure, other surgical site, initial encounter (principal); Z45.42 Encounter for adjustment and management of neurostimulator; N32.81 Overactive bladder; N39.41 Urge incontinence; G89.4 Chronic pain syndrome; J45.909 Unspecified asthma, uncomplicated; G47.33 Obstructive sleep apnea (adult) (pediatric); G43.909 Migraine, unspecified, not intractable, without status migrainosus; E28.2 Polycystic ovarian syndrome; Z88.8 Allergy status to other drugs, medicaments and biological substances; Z91.018 Allergy to other foods
CPT/HCPCS: 64590; 76000; 81025; 87070; 87075; 87077; 87186; 88304; C1778; C1787; C1894; J0131; J0690; J1885; J2250; J3010

== ENCOUNTER → 2024-07-11 | Outpatient (CLI) | payer BC ==
[~2024-07-11] MED LIST changes: +AMOX500C PO
[2024-07-11 14:12] LABS: ALBUMIN 3.3 G/DL (3.2-5.2); ALKALINE PHOSPHATASE 139 U/L (35-104); ALT/SGPT 17 U/L (7.0-40); AST/SGOT < 8 U/L (<34); BILIRUBIN,TOTAL 0.2 MG/DL (0.3-1.2); BLOOD UREA NITROGEN 12 MG/DL (9-23); CARBON DIOXIDE LEVEL 25 MMOL/L (20-31); CHLORIDE LEVEL 108 MMOL/L (98-107); GLOMERULAR FILTRATION RATE > 60.0 (>60); GLUCOSE, FASTING 101 MG/DL (60-100); POTASSIUM SERUM 4.2 MMOL/L (3.5-5.1); SODIUM LEVEL 140 MMOL/L (136-145)
[2024-07-11 14:16] LABS: FREE T4 0.89 NG/DL (0.89-1.76); THYROID STIMULATING HORMONE 2.924 uIU/ML (0.55-4.78)
== END ==
LOC: M PLALAB 10:31
PROVIDERS: ATTEND Nurse Practitioner Adult Health
DX: E74.39 Other disorders of intestinal carbohydrate absorption (principal); E66.01 Morbid (severe) obesity due to excess calories; K76.0 Fatty (change of) liver, not elsewhere classified

== ENCOUNTER 2024-07-21 08:54 | Emergency (ER) | payer BC ==
[~2024-07-21] VITALS: Ht 162.6 cm; Wt 145.3 kg
[2024-07-21 09:06] VITALS: TEMP 99.4
[2024-07-21 11:42] LABS: BASO % 0.3 % (0.0-1.0); EOS # 0.2 10^3/uL (0.0-0.5); EOS % 1.7 % (0.0-3.0); HEMATOCRIT 37.1 % (36.0-47.0); HEMOGLOBIN 12.3 g/dl (12.0-15.5); LYMPH # 3.1 10^3/uL (1.5-5.0); LYMPH % 30.8 % (24.0-44.0); MEAN CORPUSCULAR HGB CONC 33.2 g/dl (32.0-36.5); MEAN CORPUSCULAR VOLUME 84.5 fl (80.0-96.0); MONO # 0.5 10^3/uL (0.0-0.8); MONO % 4.6 % (2.0-8.0); NEUTROPHILS # 6.2 10^3/uL (1.5-8.5); NEUTROPHILS % 62.4 % (36.0-66.0); PLATELET COUNT, AUTOMATED 315 10^3/uL (150-450); RED BLOOD COUNT 4.39 10^6/uL (4.00-5.40)
[2024-07-21 11:52] LABS: BLOOD UREA NITROGEN 9 MG/DL (9-23); C REACTIVE PROTEIN QUANTITATIV 7.26 MG/DL (<1.0); CALCIUM LEVEL 8.7 MG/DL (8.5-10.1); CARBON DIOXIDE LEVEL 24 MMOL/L (20-31); CHLORIDE LEVEL 106 MMOL/L (98-107); CREATININE FOR GFR 0.65 MG/DL (0.55-1.30); GLOMERULAR FILTRATION RATE > 90.0 (>60); GLUCOSE, FASTING 93 MG/DL (60-100); POTASSIUM SERUM 4.2 MMOL/L (3.5-5.1); SODIUM LEVEL 141 MMOL/L (136-145)
[2024-07-21 12:09] LABS: ERYTHROCYTE SEDIMENTATION RATE 57 mm/hr (0-20)
[2024-07-21 12:47] LABS: PROCALCITONIN 0.05 ng/ml
[2024-07-21] MEDS ORDERED: ISOVUE-370 76% 100ML VIAL As Ordered ONE (12:47)
[2024-07-21 14:31] VITALS: BP 141/85; O2SAT 99
[2024-07-21] MEDS ORDERED: BACT800T5 PO (14:50)
== END 2024-07-21 15:00 | disposition home or self-care (01) ==
LOC: M ED 08:54
DX: M54.50 Low back pain, unspecified (principal); E28.2 Polycystic ovarian syndrome; G47.33 Obstructive sleep apnea (adult) (pediatric); G43.909 Migraine, unspecified, not intractable, without status migrainosus; Z88.8 Allergy status to other drugs, medicaments and biological substances; Z91.048 Other nonmedicinal substance allergy status; Z90.49 Acquired absence of other specified parts of digestive tract; Z96.82 Presence of neurostimulator; Z79.899 Other long term (current) drug therapy
CPT/HCPCS: 36415; 74177; 80048; 83605; 84145; 85025; 85652; 86140; 87040; 99283; Q9967

== ENCOUNTER → 2024-08-15 | Outpatient (REF) | payer BC ==
[~2024-08-15] MED LIST changes: +BACT800T5 PO
== END ==
LOC: M SFHCPLAZ 15:10
PROVIDERS: ATTEND Nurse Practitioner Adult Health
DX: R09.89 Other specified symptoms and signs involving the circulatory and respiratory systems (principal)

== ENCOUNTER → 2024-12-15 | Outpatient (CLI) | payer BC ==
[~2024-12-15] MED LIST changes: -IBUP-1022 PO; -IBUP1TAB6 PO; +IBUP600T42 PO; +SFHIBU600 PO
[2024-12-15 13:58] LABS: BASO # 0.0 10^3/uL (0.0-0.2); BASO % 0.2 % (0.0-1.0); EOS # 0.2 10^3/uL (0.0-0.5); EOS % 2.0 % (0.0-3.0); LYMPH # 2.8 10^3/uL (1.5-5.0); LYMPH % 28.6 % (24.0-44.0); MONO # 0.5 10^3/uL (0.0-0.8); MONO % 5.3 % (2.0-8.0); NEUTROPHILS # 6.3 10^3/uL (1.5-8.5); NEUTROPHILS % 63.7 % (36.0-66.0); PLATELET COUNT, AUTOMATED 303 10^3/uL (150-450)
[2024-12-15 14:02] LABS: ALT/SGPT 29 U/L (7.0-40); AST/SGOT 25 U/L (<34); CALCIUM LEVEL 9.1 MG/DL (8.5-10.1); CARBON DIOXIDE LEVEL 25 MMOL/L (20-31); CHLORIDE LEVEL 107 MMOL/L (98-107); CREATININE FOR GFR 0.68 MG/DL (0.55-1.30); GLOMERULAR FILTRATION RATE > 90.0 (>60); POTASSIUM SERUM 4.5 MMOL/L (3.5-5.1); SODIUM LEVEL 144 MMOL/L (136-145)
== END ==
LOC: M PLALAB 09:52
PROVIDERS: ATTEND Physician Assistant Medical
DX: R19.7 Diarrhea, unspecified (principal)

== ENCOUNTER 2024-12-31 14:50 | Emergency (ER) | payer OTHER, BC ==
[~2024-12-31] VITALS: Ht 162.6 cm; Wt 143.3 kg
[2024-12-31 14:52] VITALS: TEMP 98.2
[2024-12-31 17:27] VITALS: BP 121/74; O2SAT 94
== END 2024-12-31 17:28 | disposition home or self-care (01) ==
LOC: M ED 14:50
DX: S60.221A Contusion of right hand, initial encounter (principal); W23.1XXA Caught, crushed, jammed, or pinched between stationary objects, initial encounter; E28.2 Polycystic ovarian syndrome; G43.909 Migraine, unspecified, not intractable, without status migrainosus; J45.909 Unspecified asthma, uncomplicated; F10.10 Alcohol abuse, uncomplicated; Y92.89 Other specified places as the place of occurrence of the external cause; Y93.89 Activity, other specified; Y99.0 Civilian activity done for income or pay; Z88.8 Allergy status to other drugs, medicaments and biological substances; Z91.048 Other nonmedicinal substance allergy status

== ENCOUNTER → 2025-01-03 | Outpatient (CLI) | payer BC | LOC: M RAD 09:29 | PROVIDERS: ATTEND Nurse Practitioner Family | DX: Z96.82 Presence of neurostimulator (principal) ==

== ENCOUNTER → 2025-02-24 | Outpatient (REF) | payer BC | LOC: M SFHCPLAZ 13:04 | PROVIDERS: ATTEND Physician Assistant Medical | DX: J06.9 Acute upper respiratory infection, unspecified (principal) ==

== ENCOUNTER 2025-02-25 20:35 | Emergency (ER) | payer BC ==
[~2025-02-25] VITALS: Ht 162.6 cm; Wt 145.8 kg
[2025-02-25 21:53] LABS: KETONE, URINE AUTO RFX NEGATIVE (NEGATIVE); LEUKOCYTE ESTERASE UR AUTO RFX NEGATIVE (NEGATIVE); NITRITE, URINE AUTO RFX NEGATIVE (NEGATIVE); RBC, URINE AUTO RFX 99 /HPF (0-3); SQUAM EPITHELIAL CELL UR AURFX 2 /HPF (0-6); WBC, URINE AUTO RFX 1 /HPF (0-3)
[2025-02-25 22:11] LABS: HCG, SERUM QUALITATIVE NEGATIVE (NEGATIVE)
[2025-02-26] MEDS: METOCLOPRAMIDE 10 MG TAB PO ONE (01:40)
[2025-02-26 02:06] VITALS: BP 138/83; TEMP 98.4; O2SAT 97
[2025-03-01] MEDS ORDERED: SUMA100T2 PO (10:55)
== END 2025-02-26 02:07 | disposition home or self-care (01) ==
LOC: M ED 20:35
DX: N88.8 Other specified noninflammatory disorders of cervix uteri (principal); N83.201 Unspecified ovarian cyst, right side; G43.909 Migraine, unspecified, not intractable, without status migrainosus; J45.909 Unspecified asthma, uncomplicated; Z90.89 Acquired absence of other organs; Z88.8 Allergy status to other drugs, medicaments and biological substances; Z91.09 Other allergy status, other than to drugs and biological substances; Z79.52 Long term (current) use of systemic steroids; Z79.899 Other long term (current) drug therapy; Z79.1 Long term (current) use of non-steroidal anti-inflammatories (NSAID)

== ENCOUNTER → 2025-03-01 | Outpatient (CLI) | payer BC ==
[2025-03-01 15:31] LABS: PLATELET COUNT, AUTOMATED 354 10^3/uL (150-450)
[2025-03-01 15:53] LABS: CALCIUM LEVEL 8.4 MG/DL (8.5-10.1); CARBON DIOXIDE LEVEL 24 MMOL/L (20-31); CHLORIDE LEVEL 106 MMOL/L (98-107); CREATININE FOR GFR 0.62 MG/DL (0.55-1.30); GLOMERULAR FILTRATION RATE > 90.0 (>60); POTASSIUM SERUM 4.3 MMOL/L (3.5-5.1); SODIUM LEVEL 140 MMOL/L (136-145)
== END ==
LOC: M RAD 14:15
PROVIDERS: ATTEND Nurse Practitioner Family
DX: Z01.818 Encounter for other preprocedural examination (principal)

== ENCOUNTER 2025-03-20 13:37 | Day surgery (SDC) | payer BC ==
[~2025-03-20] VITALS: Ht 162.6 cm; Wt 145.9 kg
[~2025-03-20 13:37] MED LIST changes: +ACETAMINOPHEN 1000MG/100ML IV BAG As Ordered ONE; +LIDOCAINE 2% 100 MG/5 ML SDV (FOR ANES.) As Ordered ONE; +ONDANSETRON 4MG/2ML VIAL As Ordered ONE; +ceFAZolin SOD 2 GM IV ONCE IV ONE; +dexAMETHasone 4 MG/ML 1 ML VIAL As Ordered ONE
[2025-03-20] MEDS ORDERED: MIDAZOLAM INJ 2 MG/2 ML VIAL As Ordered ONE (14:24)
[2025-03-20] MEDS ORDERED: DEXTROSE 50% 50 ML SYRINGE IV PRN (14:55)
[2025-03-20] MEDS ORDERED: LR 1,000 ML IV SCH (14:55)
[2025-03-20] MEDS ORDERED: GLUCOSE 4 GM CHEW PO PRN (14:55)
[2025-03-20] MEDS ORDERED: GLUCAGON INJ 1 MG VIAL SC PRN (14:55)
[2025-03-20] MEDS ORDERED: INSULIN LISPRO (NovoLOG) PER UNIT SC PRN (14:55)
[2025-03-20] MEDS: ceFAZolin SOD 3 GM in DEXTROSE 5% (D5W) MINI-BAG PLU 1... IV ONE (15:22)
[2025-03-20] MEDS: LIDOCAINE 1% SDV 30 ML VIAL As Ordered ONE (16:13)
[2025-03-20] MEDS ORDERED: HYDR-4514 PO (16:28)
[2025-03-20] MEDS ORDERED: CLIN-250 PO (16:28)
[2025-03-20 17:10] VITALS: BP 132/68; TEMP 97.3; O2SAT 98
== END 2025-03-20 17:45 | disposition home or self-care (01) ==
LOC: M SDC 13:37
PROVIDERS: ATTEND Urology
DX: T85.732A Infection and inflammatory reaction due to implanted electronic neurostimulator of peripheral nerve, electrode (lead), initial encounter (principal); T84.84XA Pain due to internal orthopedic prosthetic devices, implants and grafts, initial encounter; N32.81 Overactive bladder; J45.909 Unspecified asthma, uncomplicated; Z79.899 Other long term (current) drug therapy; E28.2 Polycystic ovarian syndrome; G47.30 Sleep apnea, unspecified; Y75.2 Prosthetic and other implants, materials and neurological devices associated with adverse incidents; F41.9 Anxiety disorder, unspecified; Z91.048 Other nonmedicinal substance allergy status; F32.A Depression, unspecified; Z88.8 Allergy status to other drugs, medicaments and biological substances; G43.909 Migraine, unspecified, not intractable, without status migrainosus; Z90.49 Acquired absence of other specified parts of digestive tract
CPT/HCPCS: 64585; 64595; 76000; 81025; 87070; 87075; 87077; 87186; 87205; J0131; J0688; J0690; J1100; J2250; J2405; J3010